=== PATIENT | female | born 1980 | race Caucasian/White ===

== ENCOUNTER → 2016-06-19 | Outpatient (CLI) | payer MEDICARE, MEDICAID ==
[2016-06-19 16:50] LABS: ABSOLUTE BASOPHILS # (AUTO) 0.1 10^3/uL (0.0-0.2); ABSOLUTE EOSINOPHILS # (AUTO) 0.4 10^3/uL (0.0-0.6); ABSOLUTE LYMPHOCYTES (AUTO) 2.5 10^3/uL (0.5-4.7); ABSOLUTE MONOCYTES (AUTO) 0.7 10^3/uL (0.1-1.4); ABSOLUTE NEUT (AUTO) 7.5 10^3/uL (1.7-8.2); BASOPHILS % (AUTO) 0.8 % (0-2); EOSINOPHILS % (AUTO) 3.2 % (0-6); HEMATOCRIT 28.3 % (36.0-47.0); HEMOGLOBIN 8.9 g/dL (12.0-15.5); HGB HCT DIFFERENCE -1.6; LYMPHOCYTES % (AUTO) 22.5 % (13-45); MEAN CORPUSCULAR HEMOGLOBIN 21.3 pg (27.0-33.4); MEAN CORPUSCULAR HGB CONC 31.5 g/dL (32.0-36.0); MEAN CORPUSCULAR VOLUME 68 fl (80-97); MONOCYTES % (AUTO) 5.9 % (3-13); RED BLOOD COUNT 4.18 10^6/uL (3.72-5.28); RED CELL DISTRIBUTION WIDTH 21.9 % (11.5-14.0); SEGMENTED NEUTROPHILS % (AUTO) 67.6 % (42-78); WHITE BLOOD COUNT 11.1 10^3/uL (4.0-10.5)
[2016-06-19 17:09] LABS: ANISOCYTOSIS 3+; HYPOCHROMASIA 3+; MICROCYTOSIS 2+
[2016-06-19 17:10] LABS: POIKILOCYTOSIS 1+; POLYCHROMASIA SLIGHT
[2016-06-19 17:11] LABS: OVALOCYTES 1+; TARGET CELLS 2+; TEAR DROP CELLS SLIGHT
[2016-06-19 17:20] LABS: ALANINE AMINOTRANSFERASE 43 U/L (9-52); ALBUMIN 3.7 g/dL (3.5-5.0); ALKALINE PHOSPHATASE 66 U/L (38-126); AMYLASE 42 U/L (30-110); ANION GAP 12 (5-19); ASPARTATE AMINO TRANSFERASE 23 U/L (14-36); BILIRUBIN,TOTAL 0.3 mg/dL (0.2-1.3); BLOOD UREA NITROGEN 9 mg/dL (7-20); CALCIUM 9.4 mg/dL (8.4-10.2); CARBON DIOXIDE 27 mmol/L (22-30); CHLORIDE 101 mmol/L (98-107); GLUCOSE 78 mg/dL (75-110); LIPASE 69.6 U/L (23-300); POTASSIUM 4.1 mmol/L (3.6-5.0); SODIUM 139.6 mmol/L (137-145); TOTAL PROTEIN 7.1 g/dL (6.3-8.2)
--- NOTE | 2016-06-20 13:03 | HISTORY AND PHYSICAL E ---
History and Physical NAME: TATIANA WELLS : 1980 AGE: 36Y ADMITTED: 06/19/2016 ROOM: HISTORY OF PRESENT ILLNESS: Patient, known to us, presented with severe abdominal pain. A few months ago, her upper scope showed gastric bypass and gastric ulcer. We saw the patient in March, referred by Dr. Mora for severe anemia. She did have gastric bypass. She has been followed closely by Dr. Waller. PERSONAL/SOCIAL HISTORY: She smokes. She does not drink. PAST SURGICAL HISTORY: 1. She did have gastric bypass in 07/14/2014 at [facility], Dr. Buenrostro. 2. She did have hemorrhoid surgery. 3. She did have colonoscopies. 4. Hemorrhoid resection. REVIEW OF SYSTEMS: CARDIAC: Negative. ENDOCRINE: Negative. GASTROINTESTINAL: Severe abdominal pain, GI bleed, vomiting, anemia, gastric bypass. ONCOLOGIC/HEMATOLOGIC: Anemia. NEUROLOGIC: Negative. FAMILY HISTORY: Father alive, 66. Mom is alive, 64. PHYSICAL EXAMINATION: GENERAL: A pleasant 35-year-old female. VITAL SIGNS: Blood pressure 120/70, pulse 80, respirations 18, temp is 98. HEAD, EYES, EARS, NOSE, THROAT: Normal. NECK: Supple. LUNGS: Clear. ABDOMEN: Soft. NEUROLOGIC: Exam negative. The patient did have colonoscopy, 04/25/2016, which showed as follows: The patient did have post gastric bypass. CONCLUSION: 1. Anemia. 2. Abdominal pain. PLAN: 1. Lab studies. 2. Upper endoscopy. DICTATING PHYSICIAN: BHANU CHENEY M.D. [id number] Y#: [id number] ID: [id number] JOB#: [id number] ACCT: [id number] cc:MD AZAEL, BHANU FOWLER M.D. >
== END ==
LOC: OD 16:00
PROVIDERS: ATTEND Specialist
DX: R10.9 Unspecified abdominal pain (principal); D50.9 Iron deficiency anemia, unspecified
CPT/HCPCS: 36415; 80053; 82150; 83690; 85025

== ENCOUNTER 2016-06-20 10:39 | Inpatient (IN) | payer MEDICARE, MEDICAID ==
--- NOTE | 2016-04-08 11:52 | HISTORY AND PHYSICAL E ---
History and Physical NAME: TATIANA WELLS : 1980 AGE: 35Y ADMITTED: 04/09/2016 ROOM: CHIEF COMPLAINT: Abdominal pain, diarrhea, gastric bypass. HISTORY OF PRESENT ILLNESS: Recent ileoscopy done on Thursday last week, 04/03/2016. Colonoscopy is being scheduled. She had upper endoscopy on the 03 of April showing a gastric bypass and marginal ulcer about 2 cm with no active bleeding. The stool was brown, negative for blood. Now she presented with diarrhea and abdominal pain and weakness. MEDICATIONS: 1. Lyrica. 2. Diflucan. 3. Omeprazole. 4. BuSpar. 5. Adderall. 6. Latuda. 7. Lorazepam. 8. Iron. 9. Vitamins. PHYSICAL EXAMINATION: GENERAL: Pleasant, alert, oriented, in no acute distress. VITAL SIGNS: Blood pressure is 120/70, pulse 80, respirations 18, temperature is 98. HEAD, EYES, EARS, NOSE, THROAT: Normal. NECK: Supple. LUNGS: Clear. ABDOMEN: Soft. NEUROLOGIC: Negative. CONCLUSION: 1. Blood in the stool. 2. Anemia. 3. Gastric bleed. 4. Gastric bypass. 5. Diarrhea. PLAN: Colonoscopy, admit the day after tomorrow. Today is the ; we will admit her for colonoscopy on the . She is for CT abdominopelvic tomorrow for persistent abdominal pain, negative acute abdominal series. The plan is colonoscopy on Thursday. DICTATING PHYSICIAN: BHANU CHENEY M.D. [id number] Y#: [id number] ID: [id number] JOB#: [id number] ACCT: [id number] cc:BHANU CHENEY M.D. >
[~2016-06-20 10:39] MED LIST: EPINEPHRINE INJ 1 MG/10 ML DISP.SYRIN ONE; FENTANYL CITRATE INJ/PF 100 MCG/2 ML AMPUL ONE; FLUMAZENIL INJ 0.5 MG/5 ML VIAL IV ONE; GLUCAGON,HUMAN RECOMB 1 MG INJ ONE; GLYCOPYRROLATE INJ 0.4 MG/2 ML VIAL ONE; LIDOCAINE 2% JELLY 30 ML TUBE ONE; MIDAZOLAM 2 MG/2 ML INJ ONE; NALOXONE HCL INJ/PF 0.4 MG/1 ML SDV ONE; ONDANSETRON HCL INJ/PF 4 MG/2 ML SDV ONE; PROMETHAZINE HCL INJ 25 MG/1 ML VIAL ONE
[2016-06-20] MEDS ORDERED: GLYCOPYRROLATE INJ 0.4 MG/2 ML VIAL ONE (11:17)
[2016-06-20] MEDS ORDERED: ONDANSETRON HCL INJ/PF 4 MG/2 ML SDV ONE (11:17)
[2016-06-20] MEDS ORDERED: NALOXONE HCL INJ/PF 0.4 MG/1 ML SDV ONE (11:17)
[2016-06-20] MEDS ORDERED: PROMETHAZINE HCL INJ 25 MG/1 ML VIAL ONE (11:17)
[2016-06-20] MEDS ORDERED: EPINEPHRINE INJ 1 MG/10 ML DISP.SYRIN ONE (11:18)
[2016-06-20] MEDS ORDERED: FLUMAZENIL INJ 0.5 MG/5 ML VIAL IV ONE (11:18)
[2016-06-20] MEDS ORDERED: FENTANYL CITRATE INJ/PF 100 MCG/2 ML AMPUL ONE (11:18)
[2016-06-20] MEDS: MIDAZOLAM 2 MG/2 ML INJ ONE ×3 (11:42→11:46)
[2016-06-20] MEDS ORDERED: NORMAL SALINE 1000 ML 1,000 ML IV PRN (12:43)
[2016-06-20] MEDS ORDERED: ONDANSETRON HCL INJ/PF 4 MG/2 ML SDV IV PRN (12:43)
[2016-06-20] MEDS ORDERED: OXYCODONE-ACETAMINOPHEN 5-325 MG TABLET PO PRN (12:43)
[2016-06-20] MEDS ORDERED: ACETAMINOPHEN 325 MG TABLET PO PRN (12:43)
[2016-06-20] MEDS ORDERED: LORAZEPAM 1 MG TABLET PO PRN (12:53)
[2016-06-20 13:09] LABS: ABSOLUTE BASOPHILS # (AUTO) 0.1 10^3/uL (0.0-0.2); ABSOLUTE EOSINOPHILS # (AUTO) 0.4 10^3/uL (0.0-0.6); ABSOLUTE LYMPHOCYTES (AUTO) 1.8 10^3/uL (0.5-4.7); ABSOLUTE MONOCYTES (AUTO) 0.4 10^3/uL (0.1-1.4); ABSOLUTE NEUT (AUTO) 4.5 10^3/uL (1.7-8.2); BASOPHILS % (AUTO) 1.2 % (0-2); EOSINOPHILS % (AUTO) 5.1 % (0-6); HEMATOCRIT 28.7 % (36.0-47.0); HEMOGLOBIN 8.8 g/dL (12.0-15.5); HGB HCT DIFFERENCE -2.3; LYMPHOCYTES % (AUTO) 25.3 % (13-45); MEAN CORPUSCULAR HEMOGLOBIN 21.4 pg (27.0-33.4); MEAN CORPUSCULAR HGB CONC 30.6 g/dL (32.0-36.0); MEAN CORPUSCULAR VOLUME 70 fl (80-97); MONOCYTES % (AUTO) 5.9 % (3-13); RED BLOOD COUNT 4.12 10^6/uL (3.72-5.28); RED CELL DISTRIBUTION WIDTH 21.7 % (11.5-14.0); SEGMENTED NEUTROPHILS % (AUTO) 62.5 % (42-78); WHITE BLOOD COUNT 7.2 10^3/uL (4.0-10.5)
[2016-06-20 13:33] LABS: ALANINE AMINOTRANSFERASE 26 U/L (9-52); ALBUMIN 3.8 g/dL (3.5-5.0); ALKALINE PHOSPHATASE 58 U/L (38-126); ANION GAP 9 (5-19); ASPARTATE AMINO TRANSFERASE 16 U/L (14-36); BILIRUBIN,TOTAL 0.3 mg/dL (0.2-1.3); BLOOD UREA NITROGEN 7 mg/dL (7-20); CALCIUM 9.1 mg/dL (8.4-10.2); CARBON DIOXIDE 26 mmol/L (22-30); CHLORIDE 104 mmol/L (98-107); CREATININE RESULT 0.65 mg/dL (0.52-1.25); GLUCOSE 144 mg/dL (75-110); POTASSIUM 3.7 mmol/L (3.6-5.0); SODIUM 138.8 mmol/L (137-145); TOTAL PROTEIN 6.8 g/dL (6.3-8.2)
[2016-06-20] MEDS ORDERED: (PENDING PHARMACY ID) (Buspirone Hcl [Buspar 5 Mg Tablet] 5 MG) PO SCH (14:00)
[2016-06-20] MEDS ORDERED: MORPHINE SULFATE 10 MG/ML INJ IV ONE ×2 (14:21→15:00)
[2016-06-20] MEDS ORDERED: DIPHENHYDRAMINE HCL 50 MG/ML VIAL IV ONE (14:45)
--- NOTE | 2016-06-20 16:03 | PDOC H&P ---
History of Present Illness Admission Date/PCP: 06/20/16 12:44 BHANU CHENEY MD Patient complains of: Left upper quadrant abdominal pain, nausea and vomiting History of Present Illness: TATIANA WELLS is a 36 year old female who is being admitted directly from the endoscopy suite after EGD earlier this morning by Dr Cheney. Patient was found to have a large gastric ulcer that was actively bleeding and was injected. She reports a 2 week history of abdominal pain, nausea and vomiting. She states emesis has been occasionally looking like coffee grounds. She is still experiencing 4 out of 5 abdominal pain in the epigastric area. She denies any nausea. She states she underwent gastric bypass surgery 3 years ago and has lost 218 lbs. She denies any other complaints Past Medical History Cardiac Medical History: Reports: None, Hyperlipidema Denies: Coronary Artery Disease, Myocardial Infarction, Hypertension Pulmonary Medical History: Reports: None Denies: Asthma, Bronchitis, Chronic Obstructive Pulmonary Disease (COPD), Pneumonia EENT Medical History: Reports: None Neurological Medical History: Reports: None Denies: Seizures Endocrine Medical History: Reports: None Renal/ Medical History: Reports: None Malignancy Medical History: Reports: None GI Medical History: Reports: None Denies: Hepatitis, Hiatal Hernia Musculoskeltal Medical History: Denies: Arthritis Skin Medical History: Reports: None Psychiatric Medical History: Reports: Attention Deficit Hyperactivity Disorder, Bipolar Disorder, Depression Hematology: Reports: Anemia - [place] Denies: Sickle Cell Disease Infectious Medical History: Reports: None Past Surgical History Past Surgical History: Reports: Gastric Bypass Surgery, Hysterectomy, Tubal Ligation Denies: Amputation, Mastectomy, Pacemaker Social History Information Source: Patient Lives with: Family Smoking Status: Never Smoker Frequency of Alcohol Use: Occasional Hx Recreational Drug Use: No - Advance Directive Resuscitation Status: Full Code Surrogate healthcare decision maker:: Angelica ROWELL. Closest relatives are her parents Family History Family History: None Parental Family History Reviewed: Yes Children Family History Reviewed: Yes Sibling(s) Family History Reviewed.: Yes Medication/Allergy Home Medications: Lorazepam 1 mg PO TIDP PRN 05/22/11 Bupropion HCl [Wellbutrin Sr 150 mg Tablet] 150 mg PO DAILY 02/18/13 Gabapentin [Neurontin 300 Mg Capsule] 300 mg PO Q8 02/18/13 Iron 65 mg PO DAILY 02/18/13 Lurasidone HCl [Latuda] 20 mg PO DAILY 02/18/13 Omeprazole 40 mg PO DAILY 02/18/13 Trazodone HCl 100 mg PO QHS 02/18/13 Vitamin A89-Tkpofhcxf Factor [Martinic] 500 mcg PO DAILY 02/18/13 Buspirone HCl [Buspar 5 mg Tablet] 5 mg PO Q8 07/11/13 Dextroamphetamine/Amphetamine [Adderall Xr 30 mg Capsule] 30 mg PO DAILY Pregabalin [Lyrica 75 mg Capsule] 75 mg PO Q12 04/03/16 Allergies/Adverse Reactions: asenapine maleate [From Saphris] Allergy (Verified 04/22/16 15:43) swelling citalopram hydrobromide [From Celexa] Allergy (Verified 04/22/16 15:43) Hives ciprofloxacin [From Cipro] Adverse Reaction (Verified 04/22/16 15:43) Diarrhea ciprofloxacin HCl [From Cipro] Adverse Reaction (Verified 04/22/16 15:43) Diarrhea Review of Systems Constitutional: PRESENT: weakness, weight loss Eyes: ABSENT: visual disturbances Ears: ABSENT: hearing changes Cardiovascular: ABSENT: chest pain, dyspnea on exertion, edema, orthropnea, palpitations Respiratory: ABSENT: cough, hemoptysis Gastrointestinal: ABSENT: abdominal pain, constipation, diarrhea, hematemesis, hematochezia, nausea, vomiting Genitourinary: ABSENT: dysuria, hematuria Musculoskeletal: ABSENT: joint swelling Integumentary: ABSENT: rash, wounds Neurological: ABSENT: abnormal gait, abnormal speech, confusion, dizziness, focal weakness, syncope Psychiatric: ABSENT: anxiety, depression, homidical ideation, suicidal ideation Endocrine: ABSENT: cold intolerance, heat intolerance, polydipsia, polyuria Hematologic/Lymphatic: ABSENT: easy bleeding, easy bruising Physical Exam Vital Signs: Temp Pulse Resp BP Pulse Ox 97.4 F 69 15 126/77 H 100 06/20/16 14:07 06/20/16 14:07 06/20/16 14:07 06/20/16 14:07 06/20/16 14:07 Intake & Output 06/19/16 06/20/16 06/21/16 06:59 06:59 06:59 Intake Total 1240 Balance 1240 Weight 62.3 kg General appearance: PRESENT: no acute distress, well-developed, well-nourished Head exam: PRESENT: atraumatic, normocephalic Eye exam: PRESENT: conjunctiva pink, EOMI, PERRLA. ABSENT: scleral icterus Ear exam: PRESENT: normal external ear exam Mouth exam: PRESENT: moist, tongue midline Neck exam: ABSENT: carotid bruit, JVD, lymphadenopathy, thyromegaly Respiratory exam: PRESENT: clear to auscultation natalia. ABSENT: rales, rhonchi, wheezes Cardiovascular exam: PRESENT: RRR. ABSENT: diastolic murmur, rubs, systolic murmur Pulses: PRESENT: normal dorsalis pedis pul Vascular exam: PRESENT: normal capillary refill GI/Abdominal exam: PRESENT: normal bowel sounds, soft. ABSENT: distended, guarding, mass, organolmegaly, rebound, tenderness Rectal exam: PRESENT: deferred Extremities exam: PRESENT: full ROM. ABSENT: calf tenderness, clubbing, pedal edema Neurological exam: PRESENT: alert, awake, oriented to person, oriented to place , oriented to time, oriented to situation, CN II-XII grossly intact. ABSENT: motor sensory deficit Psychiatric exam: PRESENT: appropriate affect, normal mood. ABSENT: homicidal ideation, suicidal ideation Skin exam: PRESENT: dry, intact, warm. ABSENT: cyanosis, rash Results Laboratory Results: 06/20/16 12:57 06/20/16 12:57 06/20/16 06/20/16 06/20/16 12:57 12:57 12:57 WBC 7.2 RBC 4.12 Hgb 8.8 L Hct 28.7 L MCV 70 L MCH 21.4 L MCHC 30.6 L RDW 21.7 H Plt Count 418 Seg Neutrophils % 62.5 Lymphocytes % 25.3 Monocytes % 5.9 Eosinophils % 5.1 Basophils % 1.2 Absolute Neutrophils 4.5 Absolute Lymphocytes 1.8 Absolute Monocytes 0.4 Absolute Eosinophils 0.4 Absolute Basophils 0.1 Sodium 138.8 Potassium 3.7 Chloride 104 Carbon Dioxide 26 Anion Gap 9 BUN 7 Creatinine 0.65 Est GFR ( Amer) > 60 Est GFR (Non-Af Amer) > 60 Glucose 144 H Calcium 9.1 Total Bilirubin 0.3 AST 16 ALT 26 Alkaline Phosphatase 58 Total Protein 6.8 Albumin 3.8 Blood Type A NEGATIVE Antibody Screen POSITIVE Impressions: Acute Abdomen Series 06/20/16 08:34 IMPRESSION: Post gastric bypass. Large amount of stool throughout the colon Assessment & Plan - Diagnosis (1) GI bleeding Qualifiers: GI bleed type/associated pathology: gastric ulcer Qualified Code(s) : K25.4 - Chronic or unspecified gastric ulcer with hemorrhage Is this a current diagnosis for this admission?: YesPlan: Patient underwent EGD with injection of gastric ulcer by Dr Cheney. Continues to have pain. (2) Gastric ulcer Qualifiers: Gastric ulcer chronicity: acute Gastric ulcer complication status: with hemorrhage Qualified Code(s): K25.0 - Acute gastric ulcer with hemorrhage Is this a current diagnosis for this admission?: YesPlan: Patient had EGD with injection and biopsy pending. Placed on IV protonix and carafate. Prn analgesics (3) Abdominal pain Qualifiers: Abdominal location: epigastric Qualified Code(s): R10.13 - Epigastric pain Is this a current diagnosis for this admission?: YesPlan: Protonix IV, carafate, prn analgesics (4) Affective bipolar disorder Qualifiers: Active/Remission status: remission status unspecified Qualified Code (s): F31.9 - Bipolar disorder, unspecified Is this a current diagnosis for this admission?: YesPlan: Continue current medications - Time Time Spent: 50 to 70 Minutes Critical Time spent with patient: 35 or more minutes Medications reviewed and adjusted accordingly: Yes Anticipated discharge: Home - Inpatient Certification Based on my medical assessment, after consideration of the patient's comorbidities, presenting symptoms, or acuity I expect that the services needed warrant INPATIENT care.: Yes I certify that my determination is in accordance with my understanding of Medicare's requirements for reasonable and necessary INPATIENT services [42 CFR 412.3e].: Yes Medical Necessity: Need For IV Fluids, Need for Pain Control, Risk of Complication if Not Cared For in Hospital
[2016-06-20 16:46] LABS: ABSOLUTE BASOPHILS # (AUTO) 0.1 10^3/uL (0.0-0.2); ABSOLUTE EOSINOPHILS # (AUTO) 0.5 10^3/uL (0.0-0.6); ABSOLUTE LYMPHOCYTES (AUTO) 3.4 10^3/uL (0.5-4.7); ABSOLUTE MONOCYTES (AUTO) 1.1 10^3/uL (0.1-1.4); ABSOLUTE NEUT (AUTO) 4.7 10^3/uL (1.7-8.2); BASOPHILS % (AUTO) 1.2 % (0-2); EOSINOPHILS % (AUTO) 5.4 % (0-6); HEMATOCRIT 29.5 % (36.0-47.0); HGB HCT DIFFERENCE -2.5; LYMPHOCYTES % (AUTO) 34.6 % (13-45); MEAN CORPUSCULAR HEMOGLOBIN 21.5 pg (27.0-33.4); MEAN CORPUSCULAR HGB CONC 30.4 g/dL (32.0-36.0); MEAN CORPUSCULAR VOLUME 71 fl (80-97); RED BLOOD COUNT 4.18 10^6/uL (3.72-5.28); RED CELL DISTRIBUTION WIDTH 21.2 % (11.5-14.0); SEGMENTED NEUTROPHILS % (AUTO) 47.8 % (42-78); WHITE BLOOD COUNT 9.8 10^3/uL (4.0-10.5)
[2016-06-20] MEDS: SUCRALFATE 1 GM TABLET PO SCH ×2 (16:48→21:33)
[2016-06-20] MEDS: GABAPENTIN 300 MG CAPSULE PO SCH ×2 (16:48→21:34)
[2016-06-20 17:06] LABS: ANISOCYTOSIS 3+; HYPOCHROMASIA 2+; MICROCYTOSIS 2+; OVALOCYTES 1+; POIKILOCYTOSIS 1+; POLYCHROMASIA 1+; SCHISTOCYTES SLIGHT; TARGET CELLS 1+; TEAR DROP CELLS SLIGHT
[2016-06-20] MEDS ORDERED: LANSOPRAZOLE 30 MG TAB.RAP.DR PO SCH (18:00)
[2016-06-20] MEDS: MORPHINE SULFATE 10 MG/ML INJ IV PRN (19:59)
[2016-06-20] MEDS: DIPHENHYDRAMINE HCL 50 MG/ML VIAL IV PRN (19:59)
[2016-06-20] MEDS ORDERED: NICOTINE 21 MG/24 HR PATCH.TD24 TD ONE (20:30)
[2016-06-20] MEDS: PANTOPRAZOLE SODIUM 40 MG VIAL IV SCH (21:33)
[2016-06-20] MEDS: BUSPIRONE HCL 10 MG TABLET PO SCH (21:34)
[2016-06-20] MEDS: BUPROPION HCL 75 MG TABLET PO SCH (21:34)
[2016-06-20] MEDS: TRAZODONE HCL 50 MG TABLET PO SCH (21:35)
[2016-06-20] MEDS ORDERED: PREGABALIN 75 MG CAPSULE PO SCH (22:00)
[2016-06-21] MEDS: MORPHINE SULFATE 10 MG/ML INJ IV PRN ×4 (00:12→20:03)
[2016-06-21] MEDS: DIPHENHYDRAMINE HCL 50 MG/ML VIAL IV PRN ×4 (00:17→20:06)
[2016-06-21 00:48] LABS: ABSOLUTE BASOPHILS # (AUTO) 0.1 10^3/uL (0.0-0.2); ABSOLUTE EOSINOPHILS # (AUTO) 0.3 10^3/uL (0.0-0.6); ABSOLUTE LYMPHOCYTES (AUTO) 3.3 10^3/uL (0.5-4.7); ABSOLUTE MONOCYTES (AUTO) 0.6 10^3/uL (0.1-1.4); ABSOLUTE NEUT (AUTO) 2.8 10^3/uL (1.7-8.2); EOSINOPHILS % (AUTO) 4.7 % (0-6); HEMATOCRIT 25.5 % (36.0-47.0); HEMOGLOBIN 8.2 g/dL (12.0-15.5); HGB HCT DIFFERENCE -0.9; LYMPHOCYTES % (AUTO) 46.5 % (13-45); MEAN CORPUSCULAR HEMOGLOBIN 21.8 pg (27.0-33.4); MEAN CORPUSCULAR VOLUME 68 fl (80-97); MONOCYTES % (AUTO) 8.5 % (3-13); RED BLOOD COUNT 3.76 10^6/uL (3.72-5.28); RED CELL DISTRIBUTION WIDTH 21.8 % (11.5-14.0); SEGMENTED NEUTROPHILS % (AUTO) 39.3 % (42-78); WHITE BLOOD COUNT 7.1 10^3/uL (4.0-10.5)
[2016-06-21] MEDS: DEXTROSE 5%-1/2 NORMAL SALINE 1,000 ML IV PRN ×2 (00:59→20:04)
[2016-06-21 06:39] LABS: ABSOLUTE BASOPHILS # (AUTO) 0.1 10^3/uL (0.0-0.2); ABSOLUTE EOSINOPHILS # (AUTO) 0.3 10^3/uL (0.0-0.6); ABSOLUTE LYMPHOCYTES (AUTO) 2.8 10^3/uL (0.5-4.7); ABSOLUTE MONOCYTES (AUTO) 0.5 10^3/uL (0.1-1.4); BASOPHILS % (AUTO) 0.9 % (0-2); EOSINOPHILS % (AUTO) 5.8 % (0-6); HEMATOCRIT 24.2 % (36.0-47.0); HGB HCT DIFFERENCE -1.4; LYMPHOCYTES % (AUTO) 49.9 % (13-45); MEAN CORPUSCULAR HEMOGLOBIN 21.8 pg (27.0-33.4); MEAN CORPUSCULAR HGB CONC 31.5 g/dL (32.0-36.0); MEAN CORPUSCULAR VOLUME 69 fl (80-97); MONOCYTES % (AUTO) 8.5 % (3-13); RED BLOOD COUNT 3.48 10^6/uL (3.72-5.28); RED CELL DISTRIBUTION WIDTH 21.6 % (11.5-14.0); SEGMENTED NEUTROPHILS % (AUTO) 34.9 % (42-78); WHITE BLOOD COUNT 5.7 10^3/uL (4.0-10.5)
[2016-06-21 06:53] LABS: ALANINE AMINOTRANSFERASE 26 U/L (9-52); ALKALINE PHOSPHATASE 49 U/L (38-126); ANION GAP 8 (5-19); ASPARTATE AMINO TRANSFERASE 12 U/L (14-36); BILIRUBIN,TOTAL 0.2 mg/dL (0.2-1.3); BLOOD UREA NITROGEN 5 mg/dL (7-20); CALCIUM 8.6 mg/dL (8.4-10.2); CARBON DIOXIDE 24 mmol/L (22-30); CHLORIDE 108 mmol/L (98-107); CREATININE RESULT 0.64 mg/dL (0.52-1.25); GLUCOSE 88 mg/dL (75-110); POTASSIUM 4.1 mmol/L (3.6-5.0); SODIUM 140.2 mmol/L (137-145); TOTAL PROTEIN 5.6 g/dL (6.3-8.2)
[2016-06-21] MEDS: GABAPENTIN 300 MG CAPSULE PO SCH ×3 (06:54→21:18)
[2016-06-21] MEDS: BUSPIRONE HCL 10 MG TABLET PO SCH ×3 (06:54→21:18)
[2016-06-21 06:59] LABS: HEMOGLOBIN 7.6 g/dL (12.0-15.5)
[2016-06-21] MEDS ORDERED: NORMAL SALINE 250 ML IV PRN ×2 (09:36)
[2016-06-21] MEDS ORDERED: DIPHENHYDRAMINE HCL 25 MG CAPSULE PO PRN (09:36)
[2016-06-21] MEDS: SUCRALFATE 1 GM TABLET PO SCH ×4 (09:36→21:18)
[2016-06-21] MEDS: NICOTINE 21 MG/24 HR PATCH.TD24 TD SCH (09:36)
[2016-06-21] MEDS: PANTOPRAZOLE SODIUM 40 MG VIAL IV SCH ×2 (09:38→21:18)
[2016-06-21] MEDS: BUPROPION HCL 75 MG TABLET PO SCH ×2 (09:39→21:18)
[2016-06-21] MEDS ORDERED: [UNRECOGNIZED DRUG - OTHER] PO SCH (10:00)
[2016-06-21] MEDS ORDERED: (PENDING PHARMACY ID) (Lurasidone Hcl [Latuda] 20 MG) PO SCH (10:00)
[2016-06-21] MEDS ORDERED: (PENDING PHARMACY ID) (Iron [Iron] 65 MG) PO SCH (10:00)
[2016-06-21] MEDS ORDERED: DEXTROAMPHETAMINE PO SCH (10:00)
[2016-06-21] MEDS ORDERED: (PENDING PHARMACY ID) (Bupropion Hcl [Wellbutrin Sr 150 Mg Tablet] 150 MG) PO SCH (10:00)
[2016-06-21] MEDS ORDERED: AMPHETAMINE PO SCH (10:00)
[2016-06-21] MEDS ORDERED: ONDANSETRON 4 MG TAB.RAPDIS PO PRN (10:03)
[2016-06-21] MEDS ORDERED: LUBIPROSTONE 24 MCG CAPSULE PO ONE (11:00)
--- NOTE | 2016-06-21 11:29 | PDOC CONSULTATION ---
Consultation Consult Date: 06/21/16 Attending physician:: BHANU CHENEY Consult reason:: Anemia, gastric bypass History of Present Illness Admission Date/PCP: 06/20/16 12:44 BHANU CHENEY MD Patient complains of: Weakness, abdominal pain, fatigue, anemia History of Present Illness: 36-year-old female with past medical history significant for gastric bypass. She had that in June 2014 in [place]. Recently she's been dealing with a gastric ulcer at the anastomotic site. This is originally noted per notes in March of this year, she did have EGD done at that time and was treated with PPI since then. She presents with one-month history of increasing abdominal pain, it starts epigastric and then goes backwards. She has had low hemoglobin since then, she tells me her hemoglobin has never gotten better than 9, but recently it is dropped. She had some coffee-ground emesis. Here her hemoglobin initially was in the 8 range is dropped down into the 7 range. This morning I added iron studies to her labs. She's never received IV iron in the past. 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 She is still complaining of the abdominal pain now. Past Medical History Cardiac Medical History: Reports: None, Hyperlipidema Denies: Coronary Artery Disease, Myocardial Infarction, Hypertension Pulmonary Medical History: Reports: None Denies: Asthma, Bronchitis, Chronic Obstructive Pulmonary Disease (COPD), Pneumonia EENT Medical History: Reports: None Neurological Medical History: Reports: None Denies: Seizures Endocrine Medical History: Reports: None Renal/ Medical History: Reports: None Malignancy Medical History: Reports: None GI Medical History: Reports: None Denies: Hepatitis, Hiatal Hernia Musculoskeltal Medical History: Denies: Arthritis Skin Medical History: Reports: None Psychiatric Medical History: Reports: Attention Deficit Hyperactivity Disorder, Bipolar Disorder, Depression Hematology: Reports: Anemia - [place] Denies: Sickle Cell Disease Infectious Medical History: Reports: None Past Surgical History Past Surgical History: Reports: Gastric Bypass Surgery, Hysterectomy, Tubal Ligation, Other - Endoscopy Denies: Amputation, Mastectomy, Pacemaker Social History Lives with: Family Smoking Status: Never Smoker Frequency of Alcohol Use: Occasional Hx Recreational Drug Use: No - Advance Directive Resuscitation Status: Full Code Family History Family History: None Parental Family History Reviewed: Yes Children Family History Reviewed: Yes Sibling(s) Family History Reviewed.: Yes Medication/Allergy Home Medications: Lorazepam 1 mg PO TIDP PRN 05/22/11 Bupropion HCl [Wellbutrin Sr 150 mg Tablet] 150 mg PO DAILY 02/18/13 Gabapentin [Neurontin 300 Mg Capsule] 300 mg PO Q8 02/18/13 Iron 65 mg PO DAILY 02/18/13 Lurasidone HCl [Latuda] 20 mg PO DAILY 02/18/13 Omeprazole 40 mg PO DAILY 02/18/13 Trazodone HCl 100 mg PO QHS 02/18/13 Vitamin P69-Axloxwfsc Factor [Martinic] 500 mcg PO DAILY 02/18/13 Buspirone HCl [Buspar 5 mg Tablet] 5 mg PO Q8 07/11/13 Dextroamphetamine/Amphetamine [Adderall Xr 30 mg Capsule] 30 mg PO DAILY Pregabalin [Lyrica 75 mg Capsule] 75 mg PO Q12 04/03/16 Allergies/Adverse Reactions: asenapine maleate [From Saphris] Allergy (Verified 04/22/16 15:43) swelling citalopram hydrobromide [From Celexa] Allergy (Verified 04/22/16 15:43) Hives ciprofloxacin [From Cipro] Adverse Reaction (Verified 04/22/16 15:43) Diarrhea ciprofloxacin HCl [From Cipro] Adverse Reaction (Verified 04/22/16 15:43) Diarrhea Review of Systems Constitutional: PRESENT: anorexia, fatigue, weakness Cardiovascular: PRESENT: dyspnea on exertion Gastrointestinal: PRESENT: abdominal pain, coffee ground emesis, nausea, vomiting Neurological: ABSENT: abnormal gait, abnormal speech, confusion, dizziness, focal weakness, syncope Hematologic/Lymphatic: PRESENT: as per HPI Physical Exam Vital Signs: Temp Pulse Resp BP Pulse Ox 98.2 F 80 15 94/56 L 100 06/21/16 07:42 06/21/16 07:42 06/21/16 07:42 06/21/16 07:42 06/21/16 07:42 Intake & Output 06/20/16 06/21/16 06/22/16 06:59 06:59 06:59 Intake Total 3880 Balance 3880 Weight 62 kg General appearance: PRESENT: no acute distress, well-developed, well-nourished Head exam: PRESENT: atraumatic, normocephalic Eye exam: PRESENT: conjunctiva pink, EOMI, PERRLA. ABSENT: scleral icterus Ear exam: PRESENT: normal external ear exam Mouth exam: PRESENT: moist, tongue midline Neck exam: ABSENT: carotid bruit, JVD, lymphadenopathy, thyromegaly Respiratory exam: PRESENT: clear to auscultation natalia. ABSENT: rales, rhonchi, wheezes Cardiovascular exam: PRESENT: RRR. ABSENT: diastolic murmur, rubs, systolic murmur Pulses: PRESENT: normal dorsalis pedis pul Vascular exam: PRESENT: normal capillary refill GI/Abdominal exam: PRESENT: normal bowel sounds, soft. ABSENT: distended, guarding, mass, organolmegaly, rebound, tenderness Rectal exam: PRESENT: deferred Extremities exam: PRESENT: full ROM. ABSENT: calf tenderness, clubbing, pedal edema Neurological exam: PRESENT: alert, awake, oriented to person, oriented to place , oriented to time, oriented to situation, CN II-XII grossly intact. ABSENT: motor sensory deficit Psychiatric exam: PRESENT: appropriate affect, normal mood. ABSENT: homicidal ideation, suicidal ideation Skin exam: PRESENT: dry, intact, warm. ABSENT: cyanosis, rash Results Laboratory Results: 06/21/16 06:14 06/21/16 06:14 06/20/16 06/20/16 06/20/16 12:57 12:57 12:57 WBC 7.2 RBC 4.12 Hgb 8.8 L Hct 28.7 L MCV 70 L MCH 21.4 L MCHC 30.6 L RDW 21.7 H Plt Count 418 Seg Neutrophils % 62.5 Lymphocytes % 25.3 Monocytes % 5.9 Eosinophils % 5.1 Basophils % 1.2 Absolute Neutrophils 4.5 Absolute Lymphocytes 1.8 Absolute Monocytes 0.4 Absolute Eosinophils 0.4 Absolute Basophils 0.1 Sodium 138.8 Potassium 3.7 Chloride 104 Carbon Dioxide 26 Anion Gap 9 BUN 7 Creatinine 0.65 Est GFR ( Amer) > 60 Est GFR (Non-Af Amer) > 60 Glucose 144 H Calcium 9.1 Total Bilirubin 0.3 AST 16 ALT 26 Alkaline Phosphatase 58 Total Protein 6.8 Albumin 3.8 Blood Type A NEGATIVE Antibody Screen POSITIVE 06/20/16 06/21/16 06/21/16 16:25 00:39 06:14 WBC 9.8 7.1 5.7 RBC 4.18 3.76 3.48 L Hgb 9.0 L 8.2 L 7.6 L Hct 29.5 L 25.5 L 24.2 L MCV 71 L 68 L 69 L MCH 21.5 L 21.8 L 21.8 L MCHC 30.4 L 32.0 31.5 L RDW 21.2 H 21.8 H 21.6 H Plt Count 456 H 365 344 Seg Neutrophils % 47.8 39.3 L 34.9 L Lymphocytes % 34.6 46.5 H 49.9 H Monocytes % 11.0 8.5 8.5 Eosinophils % 5.4 4.7 5.8 Basophils % 1.2 1.0 0.9 Absolute Neutrophils 4.7 2.8 2.0 Absolute Lymphocytes 3.4 3.3 2.8 Absolute Monocytes 1.1 0.6 0.5 Absolute Eosinophils 0.5 0.3 0.3 Absolute Basophils 0.1 0.1 0.1 Sodium Potassium Chloride Carbon Dioxide Anion Gap BUN Creatinine Est GFR ( Amer) Est GFR (Non-Af Amer) Glucose Calcium Total Bilirubin AST ALT Alkaline Phosphatase Total Protein Albumin Blood Type Antibody Screen 06/21/16 06:14 WBC RBC Hgb Hct MCV MCH MCHC RDW Plt Count Seg Neutrophils % Lymphocytes % Monocytes % Eosinophils % Basophils % Absolute Neutrophils Absolute Lymphocytes Absolute Monocytes Absolute Eosinophils Absolute Basophils Sodium 140.2 Potassium 4.1 Chloride 108 H Carbon Dioxide 24 Anion Gap 8 BUN 5 L Creatinine 0.64 Est GFR ( Amer) > 60 Est GFR (Non-Af Amer) > 60 Glucose 88 Calcium 8.6 Total Bilirubin 0.2 AST 12 L ALT 26 Alkaline Phosphatase 49 Total Protein 5.6 L Albumin 3.0 L Blood Type Antibody Screen Impressions: Acute Abdomen Series 06/20/16 08:34 IMPRESSION: Post gastric bypass. Large amount of stool throughout the colon Assessment & Plan - Diagnosis (1) Iron deficiency anemia due to chronic blood loss Is this a current diagnosis for this admission?: YesPlan: Iron deficiency anemia probably from gastric blood losses, but also from poor oral absorption from gastric bypass. She probably does have an element of B12 deficiency, today I sent iron studies. Agree with the transfusion, she will also need IV iron. We will make arrangements for that. She probably will need B12 intramuscular supplementation. I will discuss her case with hospitalist team, she is having fairly severe continued abdominal pain, if her hemoglobin does not stabilize she probably will need transfer to [place] for definitive intervention for the gastric ulcer. - Time Time Spent: 50 to 70 Minutes Critical Time spent with patient: 35 or more minutes - Inpatient Certification Based on my medical assessment, after consideration of the patient's comorbidities, presenting symptoms, or acuity I expect that the services needed warrant INPATIENT care.: Yes I certify that my determination is in accordance with my understanding of Medicare's requirements for reasonable and necessary INPATIENT services [42 CFR 412.3e].: Yes Medical Necessity: Failure to Improve With Outpatient Therapy, Need For IV Fluids, Need for Surgery, Risk of Complication if Not Cared For in Hospital
[2016-06-21 12:21] LABS: FERRITIN 4.76 ng/mL (6.2-137.0)
--- NOTE | 2016-06-21 12:33 | PDOC PROGRESS REPORT ---
Subjective Progress Note for:: 06/21/16 Subjective:: Patient was seen on morning rounds. She is presently resting in bed. She is complaining of epigastric pain. She was not given pain medication by the night staff because of her blood pressure being low normal. She has had periods of nausea and vomited once. She is anxious regarding the mention of a "lipoma in the esophagus.." that was biopsied during her EGD yesterday in the nurses' bedside report from endoscopy staff. There was no formal report yet dictated, discussed with patient. She complains of feeling like food is getting stuck when she swallows and has a hard time vomiting without repositioning her neck. Her hemoglobin is 7.6 this morning. Patient is agreeable to getting blood. Physical Exam Vital Signs: Temp Pulse Resp BP Pulse Ox 98.2 F 80 15 94/56 L 100 06/21/16 07:42 06/21/16 07:42 06/21/16 07:42 06/21/16 07:42 06/21/16 07:42 Intake & Output 06/20/16 06/21/16 06/22/16 06:59 06:59 06:59 Intake Total 3880 Balance 3880 Weight 62 kg Results Laboratory Results: 06/21/16 06:14 06/21/16 06:14 06/20/16 06/20/16 06/20/16 12:57 12:57 12:57 WBC 7.2 RBC 4.12 Hgb 8.8 L Hct 28.7 L MCV 70 L MCH 21.4 L MCHC 30.6 L RDW 21.7 H Plt Count 418 Seg Neutrophils % 62.5 Lymphocytes % 25.3 Monocytes % 5.9 Eosinophils % 5.1 Basophils % 1.2 Absolute Neutrophils 4.5 Absolute Lymphocytes 1.8 Absolute Monocytes 0.4 Absolute Eosinophils 0.4 Absolute Basophils 0.1 Sodium 138.8 Potassium 3.7 Chloride 104 Carbon Dioxide 26 Anion Gap 9 BUN 7 Creatinine 0.65 Est GFR ( Amer) > 60 Est GFR (Non-Af Amer) > 60 Glucose 144 H Calcium 9.1 Total Bilirubin 0.3 AST 16 ALT 26 Alkaline Phosphatase 58 Total Protein 6.8 Albumin 3.8 Blood Type A NEGATIVE Antibody Screen POSITIVE 06/20/16 06/21/16 06/21/16 16:25 00:39 06:14 WBC 9.8 7.1 5.7 RBC 4.18 3.76 3.48 L Hgb 9.0 L 8.2 L 7.6 L Hct 29.5 L 25.5 L 24.2 L MCV 71 L 68 L 69 L MCH 21.5 L 21.8 L 21.8 L MCHC 30.4 L 32.0 31.5 L RDW 21.2 H 21.8 H 21.6 H Plt Count 456 H 365 344 Seg Neutrophils % 47.8 39.3 L 34.9 L Lymphocytes % 34.6 46.5 H 49.9 H Monocytes % 11.0 8.5 8.5 Eosinophils % 5.4 4.7 5.8 Basophils % 1.2 1.0 0.9 Absolute Neutrophils 4.7 2.8 2.0 Absolute Lymphocytes 3.4 3.3 2.8 Absolute Monocytes 1.1 0.6 0.5 Absolute Eosinophils 0.5 0.3 0.3 Absolute Basophils 0.1 0.1 0.1 Sodium Potassium Chloride Carbon Dioxide Anion Gap BUN Creatinine Est GFR ( Amer) Est GFR (Non-Af Amer) Glucose Calcium Total Bilirubin AST ALT Alkaline Phosphatase Total Protein Albumin Blood Type Antibody Screen 06/21/16 06:14 WBC RBC Hgb Hct MCV MCH MCHC RDW Plt Count Seg Neutrophils % Lymphocytes % Monocytes % Eosinophils % Basophils % Absolute Neutrophils Absolute Lymphocytes Absolute Monocytes Absolute Eosinophils Absolute Basophils Sodium 140.2 Potassium 4.1 Chloride 108 H Carbon Dioxide 24 Anion Gap 8 BUN 5 L Creatinine 0.64 Est GFR ( Amer) > 60 Est GFR (Non-Af Amer) > 60 Glucose 88 Calcium 8.6 Total Bilirubin 0.2 AST 12 L ALT 26 Alkaline Phosphatase 49 Total Protein 5.6 L Albumin 3.0 L Blood Type Antibody Screen Impressions: Acute Abdomen Series 06/20/16 08:34 IMPRESSION: Post gastric bypass. Large amount of stool throughout the colon Assessment & Plan - Diagnosis (1) GI bleeding Qualifiers: GI bleed type/associated pathology: gastric ulcer Qualified Code(s) : K25.4 - Chronic or unspecified gastric ulcer with hemorrhage Is this a current diagnosis for this admission?: Yes (2) Gastric ulcer Qualifiers: Gastric ulcer chronicity: acute Gastric ulcer complication status: with hemorrhage Qualified Code(s): K25.0 - Acute gastric ulcer with hemorrhage Is this a current diagnosis for this admission?: YesPlan: Patient had EGD with injection and biopsy pending. Placed on IV protonix and carafate. Prn analgesics. This has been chronic and enlarging. Not bleeding at the present time. Patient would like to see surgeon in [place] (3) Abdominal pain Qualifiers: Abdominal location: epigastric Qualified Code(s): R10.13 - Epigastric pain Is this a current diagnosis for this admission?: YesPlan: Protonix IV, carafate, prn analgesics (4) Affective bipolar disorder Qualifiers: Active/Remission status: remission status unspecified Qualified Code (s): F31.9 - Bipolar disorder, unspecified Is this a current diagnosis for this admission?: YesPlan: Continue current medications (5) Iron deficiency anemia due to chronic blood loss Is this a current diagnosis for this admission?: YesPlan: Iron studies pending. Dr Velazco is consulted - Time Time Spent with patient: 25-34 minutes Critical Time spent with patient: 15-24 minutes Medications reviewed and adjusted accordingly: Yes Anticipated discharge: Home
[2016-06-21 12:51] LABS: FOLATE 7.31 ng/mL (>2.76)
[2016-06-21] MEDS: LUBIPROSTONE 24 MCG CAPSULE PO SCH (18:20)
[2016-06-21] MEDS ORDERED: CYANOCOBALAMIN (VITAMIN B-12) INJ 1000 MCG/1 ML VIAL IM ONE (19:30)
[2016-06-21] MEDS ORDERED: CYANOCOBALAMIN (VITAMIN B-12) INJ 1000 MCG/1 ML VIAL ONE (20:57)
[2016-06-21] MEDS: TRAZODONE HCL 50 MG TABLET PO SCH (21:18)
[2016-06-22] MEDS: GABAPENTIN 300 MG CAPSULE PO SCH ×2 (05:10→13:13)
[2016-06-22] MEDS: BUSPIRONE HCL 10 MG TABLET PO SCH ×2 (05:10→13:12)
[2016-06-22] MEDS: DIPHENHYDRAMINE HCL 50 MG/ML VIAL IV PRN ×2 (05:11→10:36)
[2016-06-22] MEDS: MORPHINE SULFATE 10 MG/ML INJ IV PRN ×2 (05:11→10:22)
[2016-06-22] MEDS: DEXTROSE 5%-1/2 NORMAL SALINE 1,000 ML IV PRN (05:12)
[2016-06-22 05:32] LABS: HEMATOCRIT 29.1 % (36.0-47.0); HEMOGLOBIN 9.4 g/dL (12.0-15.5); HGB HCT DIFFERENCE -0.9; MEAN CORPUSCULAR HEMOGLOBIN 23.2 pg (27.0-33.4); MEAN CORPUSCULAR HGB CONC 32.3 g/dL (32.0-36.0); MEAN CORPUSCULAR VOLUME 72 fl (80-97); RED BLOOD COUNT 4.06 10^6/uL (3.72-5.28); RED CELL DISTRIBUTION WIDTH 21.4 % (11.5-14.0); WHITE BLOOD COUNT 6.3 10^3/uL (4.0-10.5)
[2016-06-22] MEDS ORDERED: CYANOCOBALAMIN (VITAMIN B-12) 1,000 MCG TABLET PO SCH (10:00)
--- NOTE | 2016-06-22 10:10 | PDOC PROGRESS REPORT ---
Subjective Progress Note for:: 06/22/16 Subjective:: Patient seems a little bit better today, still having abdominal pain. Seems to be tolerating some diet this morning. Physical Exam Vital Signs: Temp Pulse Resp BP Pulse Ox 98.0 F 69 20 103/58 L 99 06/22/16 07:30 06/22/16 07:30 06/22/16 07:30 06/22/16 07:30 06/22/16 07:30 Intake & Output 06/21/16 06/22/16 06/23/16 06:59 06:59 06:59 Intake Total 3880 3679 Balance 3880 3679 Weight 62 kg 61.5 kg General appearance: PRESENT: no acute distress, well-developed, well-nourished Head exam: PRESENT: atraumatic, normocephalic Eye exam: PRESENT: conjunctiva pink, EOMI, PERRLA. ABSENT: scleral icterus Ear exam: PRESENT: normal external ear exam Mouth exam: PRESENT: moist, tongue midline Neck exam: ABSENT: carotid bruit, JVD, lymphadenopathy, thyromegaly Respiratory exam: PRESENT: clear to auscultation natalia. ABSENT: rales, rhonchi, wheezes Cardiovascular exam: PRESENT: RRR. ABSENT: diastolic murmur, rubs, systolic murmur Pulses: PRESENT: normal dorsalis pedis pul Vascular exam: PRESENT: normal capillary refill GI/Abdominal exam: PRESENT: normal bowel sounds, soft. ABSENT: distended, guarding, mass, organolmegaly, rebound, tenderness Rectal exam: PRESENT: deferred Extremities exam: PRESENT: full ROM. ABSENT: calf tenderness, clubbing, pedal edema Neurological exam: PRESENT: alert, awake, oriented to person, oriented to place , oriented to time, oriented to situation, CN II-XII grossly intact. ABSENT: motor sensory deficit Psychiatric exam: PRESENT: appropriate affect, normal mood. ABSENT: homicidal ideation, suicidal ideation Skin exam: PRESENT: dry, intact, warm. ABSENT: cyanosis, rash Results Laboratory Results: 06/22/16 01:34 06/21/16 06:14 06/20/16 06/21/16 06/22/16 12:57 06:14 01:34 WBC 6.3 RBC 4.06 Hgb 9.4 L Hct 29.1 L MCV 72 L MCH 23.2 L MCHC 32.3 RDW 21.4 H Plt Count 348 Iron 14 L TIBC 412 % Saturation 3 Ferritin 4.76 L Vitamin B12 286.0 Folate 7.31 Blood Type A NEGATIVE Antibody Screen POSITIVE Impressions: Acute Abdomen Series 06/20/16 08:34 IMPRESSION: Post gastric bypass. Large amount of stool throughout the colon Assessment & Plan - Diagnosis (1) Iron deficiency anemia due to chronic blood loss Is this a current diagnosis for this admission?: YesPlan: Ferritin is 4, saturation was low, plan for IV iron today. Hemoglobin is in the 9 range and appropriate. Would not give any more blood. Gait B12 shot yesterday. From a hematologic standpoint, patient probably could go home today. We would then follow her up in clinic next week. We will need to get her to [facility], ultimately, to the bariatric surgery program to further evaluate the ulcer. - Time Time Spent with patient: 35 or more minutes Critical Time spent with patient: 35 or more minutes
[2016-06-22] MEDS: PANTOPRAZOLE SODIUM 40 MG VIAL IV SCH (10:20)
[2016-06-22] MEDS: SUCRALFATE 1 GM TABLET PO SCH (10:21)
[2016-06-22] MEDS: BUPROPION HCL 75 MG TABLET PO SCH (10:21)
[2016-06-22] MEDS: NICOTINE 21 MG/24 HR PATCH.TD24 TD SCH (10:22)
[2016-06-22] MEDS: LUBIPROSTONE 24 MCG CAPSULE PO SCH (10:22)
[2016-06-22] MEDS ORDERED: FERUMOXYTOL (NON-ESRD) 510 MG/NS 100 ML IV ONE ×2 (12:00)
[2016-06-22] MEDS ORDERED: NA PHOS,M-B/NA PHOS,DI-BA (ADULT) 133 ML ENEMA PR PRN (12:00)
[2016-06-22 13:06] VITALS: BP 114/72
--- NOTE | 2016-06-22 16:40 | PDOC DISCHARGE SUMMARY ---
General - Admit/Disc Date/PCP Admission Date/Primary Care Provider: 06/20/16 12:44 BHANU CHENEY MD Discharge Date: 06/22/16 - Discharge Diagnosis (1) GI bleeding Is this a current diagnosis for this admission?: YesSummary: Patient has had no further coffee ground emesis. Hgb stable (2) Gastric ulcer Is this a current diagnosis for this admission?: YesSummary: Patient will follow up with colorectal suregery at [facility] (3) Abdominal pain Is this a current diagnosis for this admission?: YesSummary: Percocet prn q4hhp (4) Affective bipolar disorder Is this a current diagnosis for this admission?: YesSummary: Continue home meds (5) Iron deficiency anemia due to chronic blood loss Is this a current diagnosis for this admission?: YesSummary: Patient will receive iron infusion and follow up with Dr Velazco - Additional Information Resuscitation Status: Full Code Discharge Diet: Regular Discharge Activity: Activity As Tolerated, Balance Activity w/Rest Home Medications: Lorazepam 1 mg PO TIDP PRN 05/22/11 Bupropion HCl [Wellbutrin Sr 150 mg Tablet] 150 mg PO DAILY 02/18/13 Gabapentin [Neurontin 300 mg Capsule] 300 mg PO Q8 02/18/13 Iron 65 mg PO DAILY 02/18/13 Lurasidone HCl [Latuda] 20 mg PO DAILY 02/18/13 Trazodone HCl 100 mg PO QHS 02/18/13 Vitamin V05-Bbghzymmv Factor [Martinic] 500 mcg PO DAILY 02/18/13 Buspirone HCl [Buspar 5 mg Tablet] 5 mg PO Q8 07/11/13 Dextroamphetamine/Amphetamine [Adderall Xr 30 mg Capsule] 30 mg PO DAILY Pregabalin [Lyrica 75 mg Capsule] 75 mg PO Q12 04/03/16 Acetaminophen [Tylenol 325 mg Tablet] 650 mg PO Q4HP PRN tablet 06/22/16 Lubiprostone [Amitiza 24 Mcg Capsule] 24 mcg PO BID #60 capsule 06/22/16 Nicotine [Nicoderm 21 mg/24 Hr Transderm Patch] 1 each TD DAILY #30 patch.td24 06/22/16 Omeprazole 40 mg PO DAILY #30 capsule. 06/22/16 Ondansetron [Zofran Odt 4 mg Tablet] 4 mg PO Q4HP PRN #30 tab.rapdis 06/22/16 Oxycodone HCl/Acetaminophen [Percocet 5-325 mg Tablet] 1 tab PO Q4HP PRN #30 tablet 06/22/16 Sucralfate [Carafate 1 gm Tablet] 1 gm PO ACHS #120 tablet 06/22/16 History of Present Illness History of Present Illness: TATIANA WELLS is a 36 year old female who is being admitted directly from the endoscopy suite after EGD earlier this morning by Dr Cheney. Patient was found to have a large gastric ulcer that was actively bleeding and was injected. She reports a 2 week history of abdominal pain, nausea and vomiting. She states emesis has been occasionally looking like coffee grounds. She is still experiencing 4 out of 5 abdominal pain in the epigastric area. She denies any nausea. She states she underwent gastric bypass surgery 3 years ago and has lost 218 lbs. She denies any other complaints Hospital Course Hospital Course: Patient was admitted to the telemetry unit on the hospitalist service. She received IV hydration, prn analgesics, and prn antiemetics. She tolerated a full liquid diet and was advanced to regular diet. She was seen by hematology, Dr Velazco. She will follow up with him in the office this week. Physical Exam Vital Signs: Temp Pulse Resp BP Pulse Ox 98.3 F 93 20 114/72 100 06/22/16 13:04 06/22/16 13:04 06/22/16 13:04 06/22/16 13:04 06/22/16 13:04 Intake & Output 06/21/16 06/22/16 06/23/16 06:59 06:59 06:59 Intake Total 3880 3679 720 Balance 3880 3679 720 Weight 62 kg 61.5 kg General appearance: PRESENT: no acute distress, well-developed, well-nourished Head exam: PRESENT: atraumatic, normocephalic Eye exam: PRESENT: conjunctiva pink, EOMI, PERRLA. ABSENT: scleral icterus Ear exam: PRESENT: normal external ear exam Mouth exam: PRESENT: moist, tongue midline Neck exam: ABSENT: carotid bruit, JVD, lymphadenopathy, thyromegaly Respiratory exam: PRESENT: clear to auscultation natalia. ABSENT: rales, rhonchi, wheezes Cardiovascular exam: PRESENT: RRR. ABSENT: diastolic murmur, rubs, systolic murmur Pulses: PRESENT: normal dorsalis pedis pul Vascular exam: PRESENT: normal capillary refill GI/Abdominal exam: PRESENT: normal bowel sounds, soft, tenderness. ABSENT: distended, guarding, mass, organolmegaly, rebound Rectal exam: PRESENT: deferred Extremities exam: PRESENT: full ROM. ABSENT: calf tenderness, clubbing, pedal edema Neurological exam: PRESENT: alert, awake, oriented to person, oriented to place , oriented to time, oriented to situation, CN II-XII grossly intact. ABSENT: motor sensory deficit Psychiatric exam: PRESENT: appropriate affect, normal mood. ABSENT: homicidal ideation, suicidal ideation Skin exam: PRESENT: dry, intact, warm. ABSENT: cyanosis, rash Results Laboratory Results: 06/22/16 01:34 06/21/16 06:14 06/20/16 06/22/16 12:57 01:34 WBC 6.3 RBC 4.06 Hgb 9.4 L Hct 29.1 L MCV 72 L MCH 23.2 L MCHC 32.3 RDW 21.4 H Plt Count 348 Blood Type A NEGATIVE Antibody Screen POSITIVE Impressions: Acute Abdomen Series 06/20/16 08:34 IMPRESSION: Post gastric bypass. Large amount of stool throughout the colon Qualifiers PATEINT BEING DISCHARGED WITH ANY OF THE FOLLOWING DIAGNOSIS?: No Plan Discharge Plan: Discharge home with family Time Spent: Less than 30 Minutes
--- NOTE | 2016-06-23 10:51 | OPERATIVE REPORT E ---
Operative Report NAME: TATIANA WELLS : 1980 AGE: 36Y DATE OF SURGERY: 06/20/2016 ROOM: 419 PREOPERATIVE DIAGNOSES: 1. Abdominal pain. 2. Gastric bypass. POSTOPERATIVE DIAGNOSIS: Large gastric ulcer. PROCEDURE: Esophagoscopy, gastroscopy, and duodenoscopy. SURGEON: BHANU CHENEY M.D. ANESTHESIA: Versed 3 mg and Fentanyl 100 mcg. TISSUE REMOVED OR ALTERED: Gastric biopsy for H. pylori. DESCRIPTION OF PROCEDURE: The baby scope passed under guided vision with no difficulties. Esophagoscopy: Junction at 35 cm. Proximal submucosal 3-mm lipoma-looking submucosal polyp, benign, no biopsy obtained. Gastroscopy: The patient did have gastric bypass. Distal stomach shows large gastric ulcer. This was visualized on previous endoscopy. The ulcer is the same, maybe larger. There was no bleeding vessels. Small intestinal anastomosis patent. CONCLUSIONS: Large anastomotic ulcer, distal gastric ulcer. PLAN: 1. Full liquid diet IV. 2. Surgical consult. 3. Heme consult. 4. We will try to admit to the hospitalist. DICTATING PHYSICIAN: BHANU CHENEY M.D. [id number] PHY#: [id number] ID: [id number] JOB#: [id number] ACCT: [id number] cc:PRATIBHA REVELES M.D., MAHMOUD M.D. >
== END 2016-06-22 13:00 | disposition home or self-care (01) | DRG 379 ==
LOC: END 10:39 → 4W 12:44 → UNDOADMIN 13:28 → 4W 13:28
PROVIDERS: ADMIT Specialist; ATTEND Specialist
PROC: 0DB68ZX Excision of Stomach, Via Natural or Artificial Opening Endoscopic, Diagnostic (ICD-10-PCS; principal; 2016-06-20 11:00)
PROC: 30233N1 Transfusion of Nonautologous Red Blood Cells into Peripheral Vein, Percutaneous Approach (ICD-10-PCS; 2016-06-21)
DX: K25.0 Acute gastric ulcer with hemorrhage (principal); F31.9 Bipolar disorder, unspecified; D50.0 Iron deficiency anemia secondary to blood loss (chronic); E78.5 Hyperlipidemia, unspecified; F90.9 Attention-deficit hyperactivity disorder, unspecified type; Z98.51 Tubal ligation status; Z98.84 Bariatric surgery status
CPT/HCPCS: 36415; 36430; 43239; 74022; 80053; 82607; 82728; 82746; 82941; 83540; 83550; 85025; 85027; 85730; 86850; 86870; 86900; 86901; 86920; 86922; 88305; 88341; J0171; J1200; J1610; J2250; J2270; J2310; J2405; J2550; J3010; J3420; J3490; P9016; Q0138; S0164

== ENCOUNTER 2016-06-27 07:39 | Outpatient (CLI) | payer MEDICARE, MEDICAID ==
[~2016-06-27 07:39] MED LIST changes: -EPINEPHRINE INJ 1 MG/10 ML DISP.SYRIN ONE; -FENTANYL CITRATE INJ/PF 100 MCG/2 ML AMPUL ONE; +FERRIC CARBOXYMALTOSE 750 MG in NORMAL SALINE 250 ML IV PRN; -FLUMAZENIL INJ 0.5 MG/5 ML VIAL IV ONE; -GLUCAGON,HUMAN RECOMB 1 MG INJ ONE; -GLYCOPYRROLATE INJ 0.4 MG/2 ML VIAL ONE; -LIDOCAINE 2% JELLY 30 ML TUBE ONE; -MIDAZOLAM 2 MG/2 ML INJ ONE; -NALOXONE HCL INJ/PF 0.4 MG/1 ML SDV ONE; +NORMAL SALINE 250 ML IV PRN; -ONDANSETRON HCL INJ/PF 4 MG/2 ML SDV ONE; -PROMETHAZINE HCL INJ 25 MG/1 ML VIAL ONE
[2016-06-27 08:37] VITALS: BP 131/118
== END 2016-06-27 09:23 | disposition home or self-care (01) ==
LOC: II 07:39 → 5TH 07:41 → II 09:23
PROVIDERS: ATTEND Internal Medicine
PROC: 3E033GC Introduction of Other Therapeutic Substance into Peripheral Vein, Percutaneous Approach (ICD-10-PCS; principal; 2016-06-27)
DX: D50.8 Other iron deficiency anemias (principal)
CPT/HCPCS: 96365; J7050; J1439; 96367

== ENCOUNTER → 2017-02-26 | Outpatient (CLI) | payer MEDICARE, MEDICAID ==
--- NOTE | 2017-02-26 16:47 | RADIOLOGY REPORT (SQ) ---
EXAM DESCRIPTION: UPPER GI/SM BOWEL COMPLETED DATE/TIME: 02/26/2017 1:30 pm REASON FOR STUDY: ABD PAIN (R10.9), ESOPHAGEAL DYSPHAGIA (R13.19) R10.9 UNSPECIFIED ABDOMINAL PAIN R13.19 OTHER DYSPHAGIA COMPARISON: CT abdomen pelvis 04/10/2016 Three-way abdomen series 04/30/2017 TECHNIQUE: Under fluoroscopic guidance, patient ingested effervescent granules followed by thick an d thin barium. Fluoroscopic spot images and routine radiographic images acquired and stored on PACS . Following evaluation of esophagus and stomach, additional barium administered with serial delayed ab dominal radiographs until colonic identification. Fluoroscopic images recorded of the terminal ileu m. 12 MM BARIUM TABLET GIVEN: Yes No significant delay in passage. FLUOROSCOPY TIME: 1.7 35 images saved to PACS. LIMITATIONS: None. FINDINGS: NEUROMUSCULAR COORDINATION OF SWALLOW: Normal. No aspiration. ESOPHAGEAL MOTILITY: Normal peristalsis. No esophageal spasm. ESOPHAGEAL MUCOSA: Normal mucosa without masses or ulceration. GASTRO-ESOPHAGEAL JUNCTION and STOMACH: Patient had a gastric bypass which was reversed. She gives a history of an ulcer which prompted this surgery. During the revision of the patient's stomach, a ga stric sleeve was performed. There is a small fundal pouch surrounded by multiple surgical tyler. No hiatal hernia or gastroesophageal reflux. Staple line along the greater curvature of the stomach from gastric sleeve procedure. Remainder of the stomach is otherwise unremarkable. GASTRIC OUTLET: No delay in emptying. Normal pylorus. DUODENAL BULB: Normal distention. No spasm or ulceration. DUODENUM: Mucosa normal. No extrinsic masses or malrotation. PROXIMAL SMALL BOWEL: Normal as visualized. JEJUNUM: Normal mucosal pattern. No dilatation, segmentation, strictures or masses. ILEUM: Normal mucosal pattern. No dilatation, segmentation, strictures or masses. TERMINAL ILEUM AND ILEO-CECAL VALVE: Normal mucosal pattern without cobble-stoning or stricture. Nor mal compression. PROXIMAL COLON: Incompletely imaged. No abnormality. NON-GI TRACT STRUCTURES: No significant finding. OTHER: Facet arthropathy lumbar spine. IMPRESSION: Post reversal of the gastric bypass with a small fundal pouch emptying into a stomach wi th the gastric sleeve. No gross mucosal ulcerations are seen. No hiatal hernia or gastroesophageal reflux No gastric outlet obstruction. Normal small bowel study. COMMENT: Quality ID [id number]: Final reports for procedures using fluoroscopy that document radiation exp osure indices, or exposure time and number of fluorographic images (if radiation exposure indices are not available) TECHNICAL DOCUMENTATION: JOB ID: [id number] [employer]- All Rights Reserved
== END ==
LOC: RAD 09:10
PROVIDERS: ATTEND Surgery
DX: R10.9 Unspecified abdominal pain (principal); R13.19 Other dysphagia
CPT/HCPCS: 74249

== ENCOUNTER 2017-04-07 08:14 | Outpatient (CLI) | payer MEDICARE, MEDICAID ==
[2017-04-07 08:41] VITALS: BP 134/90
== END 2017-04-07 09:31 | disposition home or self-care (01) ==
LOC: II 08:14 → 5TH 08:18 → II 09:31
PROVIDERS: ATTEND Internal Medicine
PROC: 3E033GC Introduction of Other Therapeutic Substance into Peripheral Vein, Percutaneous Approach (ICD-10-PCS; principal; 2017-04-07)
DX: D50.8 Other iron deficiency anemias (principal); K90.9 Intestinal malabsorption, unspecified
CPT/HCPCS: 96365; J7050; J1439

== ENCOUNTER 2017-04-14 07:59 | Outpatient (CLI) | payer MEDICARE, MEDICAID ==
[2017-04-14] MEDS ORDERED: NORMAL SALINE 250 ML IV PRN (08:00)
[2017-04-14] MEDS ORDERED: FERRIC CARBOXYMALTOSE 750 MG in NORMAL SALINE 250 ML IV PRN (08:00)
[2017-04-14 08:30] VITALS: BP 143/85
== END 2017-04-14 09:06 | disposition home or self-care (01) ==
LOC: II 07:59
PROVIDERS: ATTEND Internal Medicine
PROC: 3E033GC Introduction of Other Therapeutic Substance into Peripheral Vein, Percutaneous Approach (ICD-10-PCS; principal; 2017-04-14)
DX: D50.8 Other iron deficiency anemias (principal); K90.9 Intestinal malabsorption, unspecified
CPT/HCPCS: 96365; J7050; J1439

== ENCOUNTER 2017-07-16 07:56 | Outpatient (CLI) | payer MEDICARE, MEDICAID ==
[2017-07-16 08:23] VITALS: BP 139/76
== END 2017-07-16 09:13 | disposition home or self-care (01) ==
LOC: II 07:56 → 5TH 07:58 → II 09:13
PROVIDERS: ATTEND Internal Medicine
PROC: 3E033GC Introduction of Other Therapeutic Substance into Peripheral Vein, Percutaneous Approach (ICD-10-PCS; principal; 2017-07-16)
DX: D50.8 Other iron deficiency anemias (principal); K90.9 Intestinal malabsorption, unspecified
CPT/HCPCS: 96365; J7050; J1439

== ENCOUNTER 2017-07-23 07:53 | Outpatient (CLI) | payer MEDICARE, MEDICAID ==
[2017-07-23 08:30] VITALS: BP 123/70
== END 2017-07-23 08:56 | disposition home or self-care (01) ==
LOC: II 07:53 → 5TH 07:54 → II 08:56
PROVIDERS: ATTEND Internal Medicine
PROC: 3E033GC Introduction of Other Therapeutic Substance into Peripheral Vein, Percutaneous Approach (ICD-10-PCS; principal; 2017-07-23)
DX: D50.8 Other iron deficiency anemias (principal); K90.9 Intestinal malabsorption, unspecified
CPT/HCPCS: 96365; J7050; J1439

== ENCOUNTER 2018-01-15 07:54 | Outpatient (CLI) | payer MEDICARE, MEDICAID ==
[~2018-01-15 07:54] MED LIST changes: -FERRIC CARBOXYMALTOSE 750 MG in NORMAL SALINE 250 ML IV PRN; +FERUMOXYTOL (NON-ESRD) 510 MG/NS 100 ML IV PRN
[2018-01-15 08:07] VITALS: BP 127/76
== END 2018-01-15 09:21 | disposition home or self-care (01) ==
LOC: II 07:54 → 5TH 07:58 → II 09:21
PROVIDERS: ATTEND Internal Medicine
PROC: 3E033GC Introduction of Other Therapeutic Substance into Peripheral Vein, Percutaneous Approach (ICD-10-PCS; principal; 2018-01-15)
DX: D50.9 Iron deficiency anemia, unspecified (principal); K90.9 Intestinal malabsorption, unspecified
CPT/HCPCS: 96367; Q0138; 96365

== ENCOUNTER 2018-01-22 07:47 | Outpatient (CLI) | payer MEDICARE, MEDICAID ==
[2018-01-22 10:20] VITALS: BP 132/74
== END 2018-01-22 10:20 | disposition home or self-care (01) ==
LOC: II 07:47 → 5TH 07:51 → II 10:20
PROVIDERS: ATTEND Internal Medicine
PROC: 3E033GC Introduction of Other Therapeutic Substance into Peripheral Vein, Percutaneous Approach (ICD-10-PCS; principal; 2018-01-22)
DX: D50.9 Iron deficiency anemia, unspecified (principal); K90.9 Intestinal malabsorption, unspecified
CPT/HCPCS: 96365; Q0138; 96367

== ENCOUNTER 2018-04-23 07:52 | Outpatient (CLI) | payer MEDICARE, MEDICAID ==
[2018-04-23] MEDS ORDERED: FERUMOXYTOL (ESRD) 510 MG/NS 100 ML IV PRN ×2 (07:58)
[2018-04-23] MEDS ORDERED: NORMAL SALINE 250 ML IV PRN (07:58)
[2018-04-23 08:13] VITALS: BP 124/76
[2018-04-23] MEDS ORDERED: FERUMOXYTOL (NON-ESRD) 510 MG/NS 100 ML IV PRN ×2 (08:23)
== END 2018-04-23 09:14 | disposition home or self-care (01) ==
LOC: II 07:52 → 5TH 07:59 → II 09:14
PROVIDERS: ATTEND Internal Medicine
PROC: 3E033GC Introduction of Other Therapeutic Substance into Peripheral Vein, Percutaneous Approach (ICD-10-PCS; principal; 2018-04-23)
DX: D50.8 Other iron deficiency anemias (principal); K90.9 Intestinal malabsorption, unspecified
CPT/HCPCS: 96367; Q0138; 96365; Q0139

== ENCOUNTER 2018-04-30 07:52 | Outpatient (CLI) | payer MEDICARE, MEDICAID ==
[2018-04-30 08:13] VITALS: BP 122/70
== END 2018-04-30 09:01 | disposition home or self-care (01) ==
LOC: II 07:52 → 5TH 07:55 → II 09:01
PROVIDERS: ATTEND Internal Medicine
PROC: 3E033GC Introduction of Other Therapeutic Substance into Peripheral Vein, Percutaneous Approach (ICD-10-PCS; principal; 2018-04-30)
DX: D50.8 Other iron deficiency anemias (principal); K90.9 Intestinal malabsorption, unspecified
CPT/HCPCS: 96367; Q0138; 96365

== ENCOUNTER → 2018-12-20 | Outpatient (CLI) | payer MEDICARE, MEDICAID ==
[2018-12-20 08:14] LABS: ABSOLUTE BASOPHILS # (AUTO) 0.1 10^3/uL (0.0-0.2); ABSOLUTE EOSINOPHILS # (AUTO) 0.3 10^3/uL (0.0-0.6); ABSOLUTE LYMPHOCYTES (AUTO) 1.4 10^3/uL (0.5-4.7); ABSOLUTE MONOCYTES (AUTO) 0.5 10^3/uL (0.1-1.4); ABSOLUTE NEUT (AUTO) 4.1 10^3/uL (1.7-8.2); BASOPHILS % (AUTO) 0.9 % (0-2); EOSINOPHILS % (AUTO) 5.2 % (0-6); HEMATOCRIT 35.8 % (36.0-47.0); HEMOGLOBIN 11.8 g/dL (12.0-15.5); LYMPHOCYTES % (AUTO) 21.6 % (13-45); MEAN CORPUSCULAR HEMOGLOBIN 28.7 pg (27.0-33.4); MEAN CORPUSCULAR HGB CONC 33.1 g/dL (32.0-36.0); MEAN CORPUSCULAR VOLUME 87 fl (80-97); MONOCYTES % (AUTO) 7.7 % (3-13); PLATELET COUNT 342 10^3/uL (150-450); RED BLOOD COUNT 4.12 10^6/uL (3.72-5.28); RED CELL DISTRIBUTION WIDTH 13.9 % (11.5-14.0); SEGMENTED NEUTROPHILS % (AUTO) 64.6 % (42-78); TOTAL CELLS COUNTED % (AUTO) 100 %; WHITE BLOOD COUNT 6.4 10^3/uL (4.0-10.5)
[2018-12-20 08:40] LABS: ALANINE AMINOTRANSFERASE 11 U/L (9-52); ALKALINE PHOSPHATASE 44 U/L (38-126); AMYLASE 54 U/L (30-110); ANION GAP 7 (5-19); ASPARTATE AMINO TRANSFERASE 17 U/L (14-36); BILIRUBIN,DIRECT 0.2 mg/dL (0.0-0.4); BILIRUBIN,TOTAL 0.3 mg/dL (0.2-1.3); BLOOD UREA NITROGEN 9 mg/dL (7-20); CALCIUM 8.8 mg/dL (8.4-10.2); CARBON DIOXIDE 26 mmol/L (22-30); CHLORIDE 106 mmol/L (98-107); GLUCOSE 95 mg/dL (75-110); POTASSIUM 4.2 mmol/L (3.6-5.0); SODIUM 139.1 mmol/L (137-145); TOTAL PROTEIN 6.9 g/dL (6.3-8.2)
[2018-12-20 09:11] LABS: FERRITIN 6.19 ng/mL (6.2-137.0)
== END ==
LOC: OD 07:40
PROVIDERS: ATTEND Internal Medicine
DX: D64.9 Anemia, unspecified (principal); R10.11 Right upper quadrant pain; R55 Syncope and collapse
CPT/HCPCS: 36415; 80053; 82150; 82525; 82728; 83690; 83735; 85025

== ENCOUNTER 2019-06-02 05:42 | Day surgery (SDC) | payer MEDICARE, MEDICAID ==
[2019-05-30 12:19] LABS: HEMATOCRIT 37.6 % (36.0-47.0); HEMOGLOBIN 12.7 g/dL (12.0-15.5); MEAN CORPUSCULAR HEMOGLOBIN 32.1 pg (27.0-33.4); MEAN CORPUSCULAR HGB CONC 33.7 g/dL (32.0-36.0); MEAN CORPUSCULAR VOLUME 95 fl (80-97); PLATELET COUNT 269 10^3/uL (150-450); RED BLOOD COUNT 3.95 10^6/uL (3.72-5.28); RED CELL DISTRIBUTION WIDTH 13.4 % (11.5-14.0); WHITE BLOOD COUNT 7.2 10^3/uL (4.0-10.5)
[2019-05-30 12:25] LABS: APPEARANCE,URINE SLIGHTLY-CLOUDY; BILIRUBIN,URINE NEGATIVE (NEGATIVE); COLOR,URINE YELLOW; GLUCOSE, URINE NEGATIVE (NEGATIVE); KETONES,URINE NEGATIVE (NEGATIVE); LEUKOCYTE ESTERASE,URINE SMALL (NEGATIVE); NITRITE,URINE NEGATIVE (NEGATIVE); PROTEIN,URINE NEGATIVE (NEGATIVE); URINE SPECIFIC GRAVITY 1.018; UROBILINOGEN,URINE NEGATIVE mg/dL (<2.0)
--- NOTE | 2019-05-30 12:35 | RADIOLOGY REPORT (SQ) ---
EXAM DESCRIPTION: CHEST PA/LATERAL COMPLETED DATE/TIME: 05/30/2019 12:26 pm REASON FOR STUDY: PRE-OP COMPARISON: 07/11/2013 EXAM PARAMETERS: NUMBER OF VIEWS: two views TECHNIQUE: Digital Frontal and Lateral radiographic views of the chest acquired. RADIATION DOSE: NA LIMITATIONS: none FINDINGS: LUNGS AND PLEURA: No opacities, masses or pneumothorax. No pleural effusion. MEDIASTINUM AND HILAR STRUCTURES: No masses or contour abnormalities. HEART AND VASCULAR STRUCTURES: Heart normal size. No evidence for failure. BONES: No acute findings. HARDWARE: None in the chest. OTHER: No other significant finding. IMPRESSION: NO SIGNIFICANT RADIOGRAPHIC FINDING IN THE CHEST. TECHNICAL DOCUMENTATION: JOB ID: [id number] [employer]- All Rights Reserved Reading location - IP/workstation name: [email or web address]
[2019-05-30 12:51] LABS: ALBUMIN 3.8 g/dL (3.5-5.0); ALKALINE PHOSPHATASE 48 U/L (38-126); ANION GAP 8 (5-19); ASPARTATE AMINO TRANSFERASE 22 U/L (14-36); BILIRUBIN,DIRECT 0.1 mg/dL (0.0-0.4); BILIRUBIN,TOTAL 0.3 mg/dL (0.2-1.3); BLOOD UREA NITROGEN 5 mg/dL (7-20); CALCIUM 8.6 mg/dL (8.4-10.2); CARBON DIOXIDE 25 mmol/L (22-30); CHLORIDE 107 mmol/L (98-107); GLUCOSE 81 mg/dL (75-110); POTASSIUM 3.9 mmol/L (3.6-5.0); TOTAL PROTEIN 6.7 g/dL (6.3-8.2)
--- NOTE | 2019-05-31 00:30 | EKG REPORT ---
SEVERITY:- NORMAL ECG - SINUS RHYTHM : Confirmed by: Lara Lopez 31-May-2019 00:29:15
[~2019-06-02 05:42] MED LIST changes: +CEFAZOLIN SODIUM 1 GM in DEXTROSE 5%-WATER 50 ML IV PRN; -FERUMOXYTOL (NON-ESRD) 510 MG/NS 100 ML IV PRN; +LACTATED RINGERS 1000 ML IV PRN; +LIDOCAINE 0.5% INJ-PF (5 MG/ML) 50 ML SDV SUBCUT PRN; -NORMAL SALINE 250 ML IV PRN; +RINGERS SOLUTION,LACTATED 1,000 ML IV PRN
[2019-06-02] MEDS ORDERED: FENTANYL CITRATE INJ/PF 250 MCG/5 ML AMPULE ONE (07:10)
[2019-06-02] MEDS ORDERED: MIDAZOLAM 2 MG/2 ML INJ ONE (07:10)
[2019-06-02] MEDS ORDERED: PROPOFOL INJ 200 MG/20 ML VIAL IV ONE (07:10)
[2019-06-02] MEDS ORDERED: EPHEDRINE SULFATE INJ 50 MG/1 ML AMPULE ONE (07:10)
[2019-06-02] MEDS ORDERED: ALBUTEROL SULFATE 0.083% NEB 2.5 MG/3 ML AMPUL NEB ONE (07:21)
[2019-06-02] MEDS ORDERED: OXYCODONE-ACETAMINOPHEN 5-325 MG TABLET PO PRN ×2 (08:34)
[2019-06-02] MEDS ORDERED: MEPERIDINE HCL/PF INJ 25 MG/1 ML DISP.SYRIN IV PRN (08:34)
[2019-06-02] MEDS ORDERED: PROMETHAZINE HCL INJ 25 MG/1 ML VIAL IV PRN ×2 (08:34)
[2019-06-02] MEDS ORDERED: DIPHENHYDRAMINE HCL 50 MG/ML VIAL IV PRN ×2 (08:34→12:44)
[2019-06-02] MEDS ORDERED: FENTANYL CITRATE INJ/PF 100 MCG/2 ML AMPUL IV PRN ×3 (08:34)
[2019-06-02] MEDS: FENTANYL CITRATE INJ/PF 100 MCG/2 ML AMPUL ONE ×2 (10:12→10:31)
--- NOTE | 2019-06-02 10:13 | Operative Report ---
Operative Report DATE OF SURGERY: 06/02/19 PREOPERATIVE DIAGNOSIS: abnormal uterine bleeding, chronic pelvic pain, anemia, POSTOPERATIVE DIAGNOSIS: same OPERATION: Robotic assisted total laparoscopic hysterectomy with bilateral salpingectomy SURGEON: ZEKE ZHANG 1ST CALENDER LET OFF HELPER: HERSON MCDANIELS ANESTHESIA: GA TISSUE REMOVED OR ALTERED: Uterus cervix bilateral fallopian tubes COMPLICATIONS: None ESTIMATED BLOOD LOSS: 100 cc INTRAOPERATIVE FINDINGS: 14-week size uterus boggy in appearance consistent with adenomyosis fallopian tubes did not seem to have appearance of reported tubal PROCEDURE: Patient was taken to the operating room prepared and draped in normal sterile fashion in dorsolithotomy position. Under sterile conditions a Diana catheter was placed to gravity. Speculum was placed into the vagina and the cervix was grasped on the anterior lip with a single-tooth tenaculum. The cervix was then dilated to accommodate a medium V care uterine manipulator. Manipulate it was placed gloves were changed and attention was turned to the upper portion of the case. A 2-1/2 cm supra umbilical skin incision was made 11 blade and this was carried through to the underlying layer of fascia with the same 11 blade. Fascia was grasped to Johana's transacted with Bird's. Peritoneal cavity was entered sharply with Mayolauren. A GelPort was placed in a normal fashion the camera port and air seal in the appropriate locations. Peritoneal cavity was then inflated with approximately 2 L of CO2 gas. The camera was then introduced into the peritoneal cavity through the camera port and the patient was placed in steep Trendelenburg. The above findings were noted. Under direct visualization two 5 mm ports were placed approximately 10 cm on either side of the umbilicus. The robot was then docked with the vessel sealer placed on the patient's left and the monopolar scissors placed placed on the patient's right. I then unscrubbed and set at the robotic console beginning with the left adnexa fallopian tube was transected from the uterus using the vessel sealer and monopolar scissors as needed. The fallopian tube was then removed through the assistance port. The ovarian ligament was then transected using the vessel sealer. The uterine artery was skeletonized using blunt dissection and ligated using the vessel sealer down to the level of the external cervical os. The bladder flap was then begun using monopolar scissors and blunt dissection over the V care cup noted through the mucosa. Attention was then turned to the right adnexa where the fallopian tube was transected in a similar fashion. The utero- ovarian ligament was transected using the vessel sealer. The Uterine artery was then transected using the vessel sealer and skeletonized using blunt dissection. The vessel sealer was again used to completely transect the uterine artery down to the level of the external cervical os. The bladder flap was completed using similar sharp and blunt dissection. Once the bladder was felt to be adequately away from the lower uterine segment, the colpotomy was begun on the anterior aspect of the cervix following the outline of the V care cup mucosa. The cup was followed in a circumferential fashion completely around the cervix estimate was completely freed. The specimen was then removed through the vaginal defect. The instruments were then changed to a Raffaele needle caterpillar driver and pro-grasp. AV lock needle was introduced through the assistance port. The lock needle was used to close the vaginal cuff and hemostasis. The needle was then removed through the assistance port. The peritoneal cavity was carefully inspected the ureters were noted to both be peristalsing and there was no signs of hydroureter. The robot was then undocked. The fascia was closed at the umbilical skin incision seen 0 Vicryl 3 skin incisions were closed using 4-0 Vicryl. Sponge lap and needle counts were correct x2 and the patient was taken to recovery in stable condition.
[2019-06-02] MEDS ORDERED: ACETAMINOPHEN 1,000 MG/100 ML RTUPB IV ONE ×2 (10:17→18:00)
[2019-06-02] MEDS ORDERED: MORPHINE SULFATE 10 MG/ML INJ IV PRN (11:37)
[2019-06-02] MEDS ORDERED: HYDROMORPHONE HCL INJ/PF 2 MG/ML AMPULE IV PRN (14:39)
[2019-06-02] MEDS ORDERED: ROCURONIUM BROMIDE INJ 50 MG/5 ML VIAL IV ONE (14:54)
[2019-06-02] MEDS ORDERED: KETOROLAC TROMETHAMINE 60 MG/2 ML SDV ONE (14:54)
[2019-06-02] MEDS ORDERED: DEXAMETHASONE SOD PHOSPHATE INJ 4 MG/1 ML VIAL ONE (14:54)
[2019-06-02] MEDS ORDERED: LIDOCAINE 2% INJ-PF (20 MG/ML) 2 ML AMPUL ONE (14:54)
[2019-06-02] MEDS ORDERED: SUCCINYLCHOLINE CHLORIDE INJ 200 MG/10 ML VIAL ONE (14:54)
[2019-06-02] MEDS ORDERED: ONDANSETRON HCL INJ/PF 4 MG/2 ML SDV ONE (14:54)
[2019-06-02] MEDS ORDERED: GLYCOPYRROLATE 1 MG/5 ML VIAL ONE (14:54)
[2019-06-02] MEDS ORDERED: NEOSTIGMINE METHYLSULFATE 10 MG/10 ML VIAL ONE (14:54)
[2019-06-02] MEDS ORDERED: LORAZEPAM 1 MG TABLET PO PRN (17:40)
[2019-06-02] MEDS: KETOROLAC TROMETHAMINE INJ/PF 30 MG/1 ML SDV IV SCH (18:53)
[2019-06-02] MEDS ORDERED: (PENDING PHARMACY ID) (Zolpidem Tartrate [Ambien] 10 MG) PO PRN (20:44)
[2019-06-02] MEDS ORDERED: ZOLPIDEM TARTRATE 5 MG TABLET PO PRN (21:01)
[2019-06-02] MEDS: OXYCODONE-ACETAMINOPHEN 5-325 MG TABLET PO PRN (21:25)
[2019-06-02] MEDS: BUSPIRONE HCL 10 MG TABLET PO SCH (21:26)
[2019-06-02] MEDS: GABAPENTIN 300 MG CAPSULE PO SCH (21:26)
[2019-06-02] MEDS ORDERED: AMPHETAMINE PO SCH (22:00)
[2019-06-02] MEDS ORDERED: (PENDING PHARMACY ID) (Brexpiprazole [Rexulti] 2 MG) PO SCH (22:00)
[2019-06-02] MEDS ORDERED: BUSPIRONE HCL 15 MG PO SCH (22:00)
[2019-06-02] MEDS ORDERED: COPPER GLUCONATE PO SCH (22:00)
[2019-06-02] MEDS ORDERED: BUSPIRONE HCL 10 MG TABLET PO SCH (22:00)
[2019-06-02] MEDS ORDERED: (PENDING PHARMACY ID) (Prazosin Hcl [Minipress] 1 MG) PO SCH (22:00)
[2019-06-02] MEDS ORDERED: DEXTROAMPHETAMINE PO SCH (22:00)
[2019-06-02] MEDS ORDERED: TRAZODONE HCL 250 MG PO SCH (22:00)
[2019-06-02] MEDS ORDERED: TRAZODONE HCL 50 MG TABLET PO SCH ×2 (22:00)
[2019-06-03] MEDS: KETOROLAC TROMETHAMINE INJ/PF 30 MG/1 ML SDV IV SCH (02:44)
[2019-06-03] MEDS: GABAPENTIN 300 MG CAPSULE PO SCH (06:13)
[2019-06-03] MEDS: BUSPIRONE HCL 10 MG TABLET PO SCH (06:13)
[2019-06-03 06:33] LABS: HEMATOCRIT 29.5 % (36.0-47.0); HEMOGLOBIN 10.1 g/dL (12.0-15.5); MEAN CORPUSCULAR HEMOGLOBIN 32.7 pg (27.0-33.4); MEAN CORPUSCULAR HGB CONC 34.3 g/dL (32.0-36.0); MEAN CORPUSCULAR VOLUME 95 fl (80-97); PLATELET COUNT 227 10^3/uL (150-450); RED CELL DISTRIBUTION WIDTH 13.4 % (11.5-14.0); WHITE BLOOD COUNT 7.6 10^3/uL (4.0-10.5)
--- NOTE | 2019-06-03 07:51 | PDOC DISCHARGE SUMMARY ---
Impression - Admit/DC Date/PCP Admission Date/Primary Care Provider: PRATIBHA REVELES MD Discharge Date: 06/03/19 - Discharge Diagnosis (2) Chronic pelvic pain in female Is this a current diagnosis for this admission?: Yes (3) Iron deficiency anemia due to chronic blood loss Is this a current diagnosis for this admission?: Yes - Assessment Summary: underwent a RATLH w/ b/l salpingectomy. unremarkable postoperative course. pain well controled. - Additional Information Resuscitation Status: Full Code Discharge Diet: As Tolerated Discharge Activity: Balance Activity w/Rest, No Driving, No Lifting Over 10 Pounds, No Lifting/Push/Pulling, No tub bath, Walk Frequently Referrals: PRATBIHA REVELES MD [Primary Care Provider] - Prescriptions: Oxycodone HCl/Acetaminophen [Percocet 5-325 mg Tablet] 1 tab PO Q6HP PRN #30 tablet PRN Reason: Ibuprofen [Motrin 800 mg Tablet] 800 mg PO Q8HP PRN #60 tablet PRN Reason: Home Medications: Lorazepam 1 mg PO TIDP PRN 05/22/11 Gabapentin [Neurontin 300 mg Capsule] 600 mg PO Q8 02/18/13 Iron 65 mg PO DAILY 02/18/13 Trazodone HCl 200 mg PO QHS 02/18/13 Buspirone HCl [Buspar 5 mg Tablet] 15 mg PO Q8 07/11/13 Brexpiprazole [Rexulti] 2 mg PO QHS 05/30/19 Copper Gluconate [Copper] 8 mg PO QHS 05/30/19 Bupropion HCl [Bupropion Xl] 150 mg PO DAILY 06/02/19 Dextroamphetamine/Amphetamine [Adderall XR 25 mg Capsule] 25 mg PO Q12 06/02/19 Omeprazole 40 mg PO DAILYP PRN 06/02/19 Prazosin HCl [Minipress] 1 mg PO QHS 06/02/19 Zolpidem Tartrate [Ambien] 10 mg PO QHS PRN 06/02/19 Ibuprofen [Motrin 800 mg Tablet] 800 mg PO Q8HP PRN #60 tablet 06/03/19 Oxycodone HCl/Acetaminophen [Percocet 5-325 mg Tablet] 1 tab PO Q6HP PRN #30 tablet 06/03/19 History of Present Illiness History of Present Illness: TATIANA WELLS is a 39 year old female Physical Exam - Physical Exam Vital Signs: Temp Pulse Resp BP Pulse Ox 98.0 F 84 18 121/60 92 06/03/19 03:54 06/03/19 03:54 06/03/19 03:54 06/03/19 03:54 06/03/19 03:54 Intake & Output 06/02/19 06/03/19 06/04/19 06:59 06:59 06:59 Intake Total 2720 Output Total 725 1994 Weight 76.2 kg Results Laboratory Results: WBC 7.6 10^3/uL (4.0-10.5) 06/03/19 05:43 RBC 3.10 10^6/uL (3.72-5.28) L 06/03/19 05:43 Hgb 10.1 g/dL (12.0-15.5) L 06/03/19 05:43 Hct 29.5 % (36.0-47.0) L 06/03/19 05:43 MCV 95 fl (80-97) 06/03/19 05:43 MCH 32.7 pg (27.0-33.4) 06/03/19 05:43 MCHC 34.3 g/dL (32.0-36.0) 06/03/19 05:43 RDW 13.4 % (11.5-14.0) 06/03/19 05:43 Plt Count 227 10^3/uL (150-450) 06/03/19 05:43 Sodium 140.4 mmol/L (137-145) 05/30/19 11:35 Potassium 3.9 mmol/L (3.6-5.0) 05/30/19 11:35 Chloride 107 mmol/L (98-107) 05/30/19 11:35 Carbon Dioxide 25 mmol/L (22-30) 05/30/19 11:35 Anion Gap 8 (5-19) 05/30/19 11:35 BUN 5 mg/dL (7-20) L 05/30/19 11:35 Creatinine 0.54 mg/dL (0.52-1.25) 05/30/19 11:35 Est GFR ( Amer) > 60 (>60) 05/30/19 11:35 Est GFR (MDRD) Non-Af > 60 (>60) 05/30/19 11:35 Glucose 81 mg/dL (75-110) 05/30/19 11:35 Calcium 8.6 mg/dL (8.4-10.2) 05/30/19 11:35 Total Bilirubin 0.3 mg/dL (0.2-1.3) 05/30/19 11:35 Direct Bilirubin 0.1 mg/dL (0.0-0.4) 05/30/19 11:35 Neonat Total Bilirubin Not Reportable 05/30/19 11:35 Neonat Direct Bilirubin Not Reportable 05/30/19 11:35 Neonat Indirect Bili Not Reportable 05/30/19 11:35 AST 22 U/L (14-36) 05/30/19 11:35 ALT 12 U/L (<35) 05/30/19 11:35 Alkaline Phosphatase 48 U/L (38-126) 05/30/19 11:35 Total Protein 6.7 g/dL (6.3-8.2) 05/30/19 11:35 Albumin 3.8 g/dL (3.5-5.0) 05/30/19 11:35 Urine Color YELLOW 05/30/19 11:30 Urine Appearance SLIGHTLY-CLOUDY 05/30/19 11:30 Urine pH 5.0 (5.0-9.0) 05/30/19 11:30 Ur Specific [place] 1.018 05/30/19 11:30 Urine Protein NEGATIVE mg/dL (NEGATIVE) 05/30/19 11:30 Urine Glucose (UA) NEGATIVE mg/dL (NEGATIVE) 05/30/19 11:30 Urine Ketones NEGATIVE mg/dL (NEGATIVE) 05/30/19 11:30 Urine Blood NEGATIVE (NEGATIVE) 05/30/19 11:30 Urine Nitrite NEGATIVE (NEGATIVE) 05/30/19 11:30 Urine Bilirubin NEGATIVE (NEGATIVE) 05/30/19 11:30 Urine Urobilinogen NEGATIVE mg/dL (<2.0) 05/30/19 11:30 Ur Leukocyte Esterase SMALL (NEGATIVE) H 05/30/19 11:30 Urine WBC (Auto) 4 /HPF 05/30/19 11:30 Urine RBC (Auto) 1 /HPF 05/30/19 11:30 Urine Bacteria (Auto) TRACE /HPF 05/30/19 11:30 Squamous Epi Cells Auto 5 /HPF 05/30/19 11:30 Urine Mucus (Auto) RARE /LPF 05/30/19 11:30 Urine Ascorbic Acid 40 (NEGATIVE) H 05/30/19 11:30 Urine HCG, Qual NEGATIVE (NEGATIVE) 06/02/19 05:50 Blood Type A NEGATIVE 05/30/19 11:35 Antibody Screen NEGATIVE 05/30/19 11:35 Crossmatch See Detail 05/30/19 11:35 Impressions: Chest X-Ray 05/30/19 00:00 IMPRESSION: NO SIGNIFICANT RADIOGRAPHIC FINDING IN THE CHEST. Stroke Is this a Stroke Patient?: No Acute Heart Failure - Is this a Heart Failure Patient?: No
[2019-06-03 08:00] VITALS: BP 111/63
[2019-06-03] MEDS: OXYCODONE-ACETAMINOPHEN 5-325 MG TABLET PO PRN (08:27)
[2019-06-03] MEDS ORDERED: PANTOPRAZOLE SODIUM 40 MG TABLET.DR PO SCH (10:00)
[2019-06-03] MEDS ORDERED: (PENDING PHARMACY ID) (Bupropion Hcl [Bupropion Xl] 150 MG) PO SCH (10:00)
[2019-06-03] MEDS ORDERED: IBUPROFEN 800 MG TABLET PO PRN (12:00)
== END 2019-06-03 11:00 | disposition home or self-care (01) ==
LOC: OROUT 05:42 → 2N 11:10 → OROUT 06-03 11:00
PROVIDERS: ATTEND Obstetrics & Gynecology
DX: N92.1 Excessive and frequent menstruation with irregular cycle (principal); G89.29 Other chronic pain; R10.2 Pelvic and perineal pain; Z80.3 Family history of malignant neoplasm of breast; D64.9 Anemia, unspecified; Z79.899 Other long term (current) drug therapy
CPT/HCPCS: 58571; S2900; 36415; 71046; 80053; 81001; 81025; 840; 85027; 86850; 86900; 86901; 86920; 86922; 88307; 93005; 93010; A4649; J0131; J0330; J0690; J1100; J1170; J1885; J2250; J2405; J2704; J2710; J3010; J3490; J7060

== ENCOUNTER → 2019-12-27 | Outpatient (CLI) | payer MEDICARE, MEDICAID ==
[2019-12-27 10:07] LABS: ABSOLUTE BASOPHILS # (AUTO) 0.1 10^3/uL (0.0-0.2); ABSOLUTE EOSINOPHILS # (AUTO) 0.6 10^3/uL (0.0-0.6); ABSOLUTE LYMPHOCYTES (AUTO) 1.6 10^3/uL (0.5-4.7); ABSOLUTE MONOCYTES (AUTO) 0.5 10^3/uL (0.1-1.4); EOSINOPHILS % (AUTO) 7.2 % (0-6); HEMATOCRIT 41.9 % (36.0-47.0); HEMOGLOBIN 14.1 g/dL (12.0-15.5); LYMPHOCYTES % (AUTO) 20.5 % (13-45); MEAN CORPUSCULAR HEMOGLOBIN 31.6 pg (27.0-33.4); MEAN CORPUSCULAR HGB CONC 33.6 g/dL (32.0-36.0); MEAN CORPUSCULAR VOLUME 94 fl (80-97); MONOCYTES % (AUTO) 6.3 % (3-13); PLATELET COUNT 294 10^3/uL (150-450); RED BLOOD COUNT 4.46 10^6/uL (3.72-5.28); RED CELL DISTRIBUTION WIDTH 12.9 % (11.5-14.0); TOTAL CELLS COUNTED % (AUTO) 100 %; WHITE BLOOD COUNT 7.7 10^3/uL (4.0-10.5)
[2019-12-27 10:22] LABS: ALBUMIN 4.5 g/dL (3.5-5.0); ALKALINE PHOSPHATASE 56 U/L (38-126); ANION GAP 6 (5-19); ASPARTATE AMINO TRANSFERASE 18 U/L (14-36); BILIRUBIN,TOTAL 0.5 mg/dL (0.2-1.3); BLOOD UREA NITROGEN 10 mg/dL (7-20); C-REACTIVE PROTEIN 7.8 mg/L (<10.0); CALCIUM 9.4 mg/dL (8.4-10.2); CARBON DIOXIDE 26 mmol/L (22-30); CHLORIDE 108 mmol/L (98-107); CHOLESTEROL 272.03 mg/dL (0-200); GLUCOSE 87 mg/dL (75-110); IRON(TIBC) 203.3 ug/dL (37-170); POTASSIUM 4.6 mmol/L (3.6-5.0); TOTAL PROTEIN 7.8 g/dL (6.3-8.2); TRIGLYCERIDES 137 mg/dL (<150)
[2019-12-27 10:36] LABS: DIRECT LDL 169 mg/dL (<100)
[2019-12-27 10:37] LABS: FREE T4 (FREE THYROXINE) 0.94 ng/dL (0.78-2.19)
[2019-12-27 10:51] LABS: THYROID STIMULATING HORMONE 0.9 uIU/mL (0.47-4.68)
== END ==
LOC: OD 08:39
PROVIDERS: ATTEND Internal Medicine
DX: D64.9 Anemia, unspecified (principal); E78.00 Pure hypercholesterolemia, unspecified; R53.83 Other fatigue; E66.9 Obesity, unspecified; M79.7 Fibromyalgia; Z79.899 Other long term (current) drug therapy
CPT/HCPCS: 36415; 80053; 80061; 82607; 82728; 83540; 83550; 84439; 84443; 85025; 85652; 86140

== ENCOUNTER → 2020-05-18 | Outpatient (CLI) | payer MEDICARE, MEDICAID ==
[2020-05-18 12:56] LABS: APPEARANCE,URINE CLEAR; BILIRUBIN,URINE NEGATIVE (NEGATIVE); COLOR,URINE YELLOW; GLUCOSE, URINE NEGATIVE (NEGATIVE); KETONES,URINE NEGATIVE (NEGATIVE); LEUKOCYTE ESTERASE,URINE TRACE (NEGATIVE); NITRITE,URINE NEGATIVE (NEGATIVE); PROTEIN,URINE NEGATIVE (NEGATIVE); URINE SPECIFIC GRAVITY 1.012; UROBILINOGEN,URINE NEGATIVE mg/dL (<2.0)
[2020-05-18 13:23] LABS: FREE T4 (FREE THYROXINE) 0.9 ng/dL (0.78-2.19)
[2020-05-18 13:37] LABS: THYROID STIMULATING HORMONE 0.65 uIU/mL (0.47-4.68)
== END ==
LOC: OD 11:54
PROVIDERS: ATTEND Internal Medicine
DX: R63.5 Abnormal weight gain (principal); R53.83 Other fatigue; N39.0 Urinary tract infection, site not specified
CPT/HCPCS: 36415; 81001; 84439; 84443; 87086; 87088; 87186